=== PATIENT | male | born 1985 | race Hispanic/Latino ===

== ENCOUNTER 2019-04-23 20:49 | Inpatient (IN) | payer SELFPAY ==
[~2019-04-23] VITALS: Ht 165.1 cm; Wt 71.2 kg
[~2019-04-23 20:49] MED LIST: CIPR-278 PO; GLIP5TAB11 PO; HUM10VIA6 SQ; SULF1TAB42 PO; TRAM50TA2 PO
[2019-04-23 22:44] LABS: APPEARANCE,URINE Clear (CLEAR); BILIRUBIN,URINE Negative (NEGATIVE); COLOR,URINE Yellow (YELLOW); GLUCOSE, URINE (UA) >=1000 mg/dL (NEGATIVE); KETONES,URINE 40 mg/dL (NEGATIVE); LEUKOCYTE ESTERASE ,URINE Small (NEGATIVE); NITRATE,URINE Negative (NEGATIVE); OCCULT BLOOD,URINE Small (NEGATIVE); PH,URINE 5.5 (5.0-8.0); PROTEIN,URINE POS 2+ mg/dL (NEGATIVE); UROBILINOGEN,URINE 0.2 mg/dL (0.2-1.0)
[2019-04-23 22:57] LABS: BASOPHILS % (AUTO) 0.5 % (0.0-5.0); EOSINOPHILS % (AUTO) 0.5 % (0.0-8.0); HEMATOCRIT 40.5 % (42-54); LYMPHOCYTES % (AUTO) 15.2 % (21.0-51.0); MEAN CORPUSCULAR HEMOGLOBIN 29.2 pg (27.0-33.0); MEAN CORPUSCULAR HGB CONC 35.4 g/dL (32.0-36.0); MEAN CORPUSCULAR VOLUME 82.4 fL (79-99); NEUTROPHILS % (AUTO) 75.8 % (40.0-77.0); PLATELET COUNT (AUTO) 248 K/uL (130-400); RED BLOOD CELL COUNT(AUTO) 4.91 MIL/uL (4.50-6.20); RED CELL DISTRIBUTION WIDTH 13.3 % (11.0-15.5); WHITE BLOOD COUNT (AUTO) 12.5 K/uL (4.8-10.8)
[2019-04-23 23:07] LABS: BACTERIA,URINE None Seen /HPF (None Seen); SQUAMOUS EPITHELIAL CELL,UR Rare /HPF (0-2); YEAST,URINE BUDDING Moderate /HPF (None Seen)
[2019-04-23] MEDS ORDERED: SODIUM CHLORIDE 0.9% 1000ML 1,000 ML IV ONE (23:11)
[2019-04-23] MEDS ORDERED: INSULIN HUMULIN R 100 UNIT/ML 3ML ONE (23:11)
[2019-04-23 23:12] LABS: ALBUMIN 3.6 g/dL (3.5-5.0); BILIRUBIN,TOTAL 0.7 mg/dL (0.2-1.0); CREATININE 1.1 mg/dL (0.5-1.5); POTASSIUM 4.6 mmol/L (3.5-5.1); TOTAL PROTEIN, SERUM 8.5 g/dL (6.0-8.3)
[2019-04-24] MEDS ORDERED: CLINDAMYCIN 600 MG/D5% WATER 50 ML IV ONE (00:36)
[2019-04-24] MEDS ORDERED: ONDANSETRON HCL 4 MG/2 ML VIAL IV PRN (03:30)
[2019-04-24] MEDS ORDERED: ACETAMINOPHEN 325 MG TAB PO PRN ×2 (03:30)
[2019-04-24 04:30] VITALS: BP 142/94
[2019-04-24] MEDS: SODIUM CHLORIDE 0.9% 1000ML 1,000 ML IV SCH ×2 (05:18→17:03)
[2019-04-24 08:00] VITALS: BP 150/94
[2019-04-24] MEDS: INSULIN HUMULIN R 100 UNIT/ML 3ML SQ SCH ×4 (08:34→21:24)
[2019-04-24] MEDS: FAMOTIDINE 20MG TAB 20 MG TAB PO SCH ×2 (08:34→21:18)
[2019-04-24] MEDS: CLINDAMYCIN 600 MG/D5% WATER 50 ML IV SCH ×2 (08:34→17:00)
--- NOTE | 2019-04-24 11:59 | NUR ---
[facility] RECOMMENDATIONS PATIENT ASSESSED REQUESTED: PATIENT PRESENTS WITH WOUND TO LEFT INDEX FINGER; [facility] RECOMMENDATIONS SUBMITTED. Addendum: 04/24/19 at 1202 by RUDDY DE LA FUENTE LVN LVN W Amended: Links added.
[2019-04-24 12:00] VITALS: BP 149/86
[2019-04-24 16:00] VITALS: BP 129/86
[2019-04-24] MEDS ORDERED: VANCOMYCIN PROTOCOL PER PHARMACY IV SCH (17:45)
--- NOTE | 2019-04-24 17:47 | NUR ---
cm note met with patient and states resides athome with mother, independnet and active at home. no dme. dc lacey is back home. [facility] has spoken to [facility]. provided porsha clinical information. for meds rx, assist and md. pt verbalizes understanding. Addendum: 04/24/19 at 1748 by ANABEL SCHREIBER CM Amended: Links added.
[2019-04-24] MEDS ORDERED: VANCOMYCIN 1.75 GM in SODIUM CHLORIDE 0.9% 250 ML IV ONE (20:45)
[2019-04-24 21:09] VITALS: BP 132/75
[2019-04-24 23:59] VITALS: BP 111/77
[2019-04-25 04:16] VITALS: BP 116/67
[2019-04-25] MEDS: VANCOMYCIN 1GM+NS 250ML 250 ML IV SCH ×3 (05:30→21:00)
[2019-04-25 05:47] LABS: BASOPHILS % (AUTO) 0.9 % (0.0-5.0); EOSINOPHILS % (AUTO) 1.6 % (0.0-8.0); HEMATOCRIT 38.3 % (42-54); LYMPHOCYTES % (AUTO) 28.8 % (21.0-51.0); MEAN CORPUSCULAR HEMOGLOBIN 29.6 pg (27.0-33.0); MEAN CORPUSCULAR HGB CONC 35.5 g/dL (32.0-36.0); MEAN CORPUSCULAR VOLUME 83.4 fL (79-99); NEUTROPHILS % (AUTO) 54.7 % (40.0-77.0); PLATELET COUNT (AUTO) 254 K/uL (130-400); RED BLOOD CELL COUNT(AUTO) 4.59 MIL/uL (4.50-6.20); RED CELL DISTRIBUTION WIDTH 13.7 % (11.0-15.5); WHITE BLOOD COUNT (AUTO) 6.2 K/uL (4.8-10.8)
[2019-04-25 05:51] LABS: CREATININE 0.9 mg/dL (0.5-1.5); POTASSIUM 3.7 mmol/L (3.5-5.1)
[2019-04-25] MEDS: SODIUM CHLORIDE 0.9% 1000ML 1,000 ML IV SCH (06:10)
[2019-04-25 07:00] VITALS: BP 114/68
[2019-04-25] MEDS: INSULIN HUMULIN R 100 UNIT/ML 3ML SQ SCH ×4 (07:08→21:10)
[2019-04-25] MEDS: FAMOTIDINE 20MG TAB 20 MG TAB PO SCH ×2 (08:06→20:53)
[2019-04-25 11:00] VITALS: BP 123/77
[2019-04-25] MEDS ORDERED: FLUCONAZOLE 100 MG TAB PO SCH (12:00)
[2019-04-25 16:00] VITALS: BP 136/92
[2019-04-25] MEDS ORDERED: FLUCONAZOLE 100 MG TAB ONE (17:28)
[2019-04-25 20:20] VITALS: BP 124/79
[2019-04-25 23:00] VITALS: BP 115/72
[2019-04-26 03:00] VITALS: BP 119/76
[2019-04-26] MEDS: INSULIN HUMULIN R 100 UNIT/ML 3ML SQ SCH ×2 (05:16→11:38)
[2019-04-26] MEDS: VANCOMYCIN 1GM+NS 250ML 250 ML IV SCH (05:34)
[2019-04-26] MEDS: SODIUM CHLORIDE 0.9% 1000ML 1,000 ML IV SCH (05:40)
[2019-04-26 06:28] LABS: BASOPHILS % (AUTO) 0.4 % (0.0-5.0); EOSINOPHILS % (AUTO) 1.6 % (0.0-8.0); HEMATOCRIT 35.7 % (42-54); LYMPHOCYTES % (AUTO) 28.5 % (21.0-51.0); MEAN CORPUSCULAR HEMOGLOBIN 29.5 pg (27.0-33.0); MEAN CORPUSCULAR VOLUME 84.2 fL (79-99); MONOCYTES % (AUTO) 12.7 % (3.0-13.0); NEUTROPHILS % (AUTO) 56.8 % (40.0-77.0); PLATELET COUNT (AUTO) 225 K/uL (130-400); RED BLOOD CELL COUNT(AUTO) 4.24 MIL/uL (4.50-6.20); RED CELL DISTRIBUTION WIDTH 13.8 % (11.0-15.5); WHITE BLOOD COUNT (AUTO) 6.1 K/uL (4.8-10.8)
[2019-04-26 08:00] VITALS: BP 128/77
[2019-04-26] MEDS: FAMOTIDINE 20MG TAB 20 MG TAB PO SCH (08:21)
[2019-04-26 08:52] LABS: CREATININE 0.7 mg/dL (0.5-1.5)
[2019-04-26] MEDS ORDERED: FLUCONAZOLE 100 MG TAB PO SCH (09:00)
[2019-04-26] MEDS ORDERED: DOXY100T2 PO (09:28)
[2019-04-26] MEDS ORDERED: FLUC200T8 PO (09:28)
[2019-04-26 10:29] LABS: POTASSIUM 3.7 mmol/L (3.5-5.1)
[2019-04-26 11:50] VITALS: BP 141/96
--- NOTE | 2019-04-26 12:43 | NUR ---
discharge instruction provided to patient at discharge . educated on importance to take his antibiotics and controll his blood sugar and to make sure to call saturday to follow up with dr glover and primary as well. instruction on keeping wound clean and dry and if scabs fall off prematuraly to call dr glover sooner. patient verbilized understanding
== END 2019-04-26 12:15 | disposition home or self-care (01) | DRG 638 ==
LOC: EDH 20:49 → EDHIP 20:50 → OBSVTOIN 20:50 → 3DH 04-24 03:35
PROVIDERS: ADMIT Internal Medicine; ATTEND Internal Medicine
DX: E11.69 Type 2 diabetes mellitus with other specified complication (principal); L03.90 Cellulitis, unspecified; E87.1 Hypo-osmolality and hyponatremia; N39.0 Urinary tract infection, site not specified; M86.142 Other acute osteomyelitis, left hand; L02.512 Cutaneous abscess of left hand; W26.0XXA Contact with knife, initial encounter; E11.65 Type 2 diabetes mellitus with hyperglycemia; L98.499 Non-pressure chronic ulcer of skin of other sites with unspecified severity; S61.201A Unspecified open wound of left index finger without damage to nail, initial encounter; B95.61 Methicillin susceptible Staphylococcus aureus infection as the cause of diseases classified elsewhere; Y93.89 Activity, other specified; Z79.4 Long term (current) use of insulin; Y92.511 Restaurant or cafe as the place of occurrence of the external cause; Y99.8 Other external cause status
CPT/HCPCS: 36415; 73130; 80048; 80053; 80202; 81001; 82948; 85025; 85651; 86140; 87040; 87070; 87076; 87077; 87186; G0378; J1815; J3370; J3490; J7030

== ENCOUNTER 2020-04-02 15:48 | Inpatient (IN) | payer SELFPAY ==
[~2020-04-02] VITALS: Ht 165.1 cm; Wt 77.4 kg
[~2020-04-02 15:48] MED LIST changes: -CIPR-278 PO; +DOXY100T2 PO; +FLUC200T8 PO; -GLIP5TAB11 PO; -SULF1TAB42 PO; -TRAM50TA2 PO
[2020-04-02] MEDS ORDERED: CEFTRIAXONE SODIUM 2 GM VIAL ONE (16:08)
[2020-04-02] MEDS ORDERED: SODIUM CHLORIDE 0.9% 100 ML IV ONE ×2 (16:10→19:22)
[2020-04-02 16:32] LABS: BASOPHILS % (AUTO) 0.1 % (0.0-5.0); EOSINOPHILS % (AUTO) 0.6 % (0.0-8.0); LYMPHOCYTES % (AUTO) 1.4 % (21.0-51.0); MEAN CORPUSCULAR HEMOGLOBIN 28.5 pg (27.0-33.0); MEAN CORPUSCULAR HGB CONC 34.6 g/dL (32.0-36.0); MEAN CORPUSCULAR VOLUME 82.2 fL (79-99); MONOCYTES % (AUTO) 5.2 % (3.0-13.0); NEUTROPHILS % (AUTO) 86.3 % (40.0-77.0); NUCLEATED RED BLOOD CELLS 0.1 % (0.0-0.19); PLATELET COUNT (AUTO) 235 K/uL (130-400); RED BLOOD CELL COUNT(AUTO) 4.99 MIL/uL (4.50-6.20); RED CELL DISTRIBUTION WIDTH 12.6 % (11.0-15.5); WHITE BLOOD COUNT (AUTO) 26.8 K/uL (4.8-10.8)
[2020-04-02 16:44] LABS: INR 0.98 (0.85-1.15); PARTIAL THROMBOPLASTIN TIME 37.7 SEC (26.3-35.5); PROTHROMBIN TIME 10.6 SEC (9.6-11.6)
[2020-04-02 16:59] LABS: ALANINE AMINOTRANSFERASE 22 U/L (12-78); ASPARTATE AMINOTRANSFERASE 17 U/L (10-37); BILIRUBIN,TOTAL 0.9 mg/dL (0.2-1.0); CREATINE KINASE, TOTAL 22 U/L (21-232); CREATININE 1.7 mg/dL (0.5-1.5); GLOMERULAR FILTR. RATE CALC 49 mL/min (>60); MYOGLOBIN 25 ng/mL (10-92); POTASSIUM 3.2 mmol/L (3.5-5.1); SODIUM SERUM 122 mmol/L (136-145); TOTAL PROTEIN, SERUM 7.5 g/dL (6.0-8.3); TROPONIN I < 0.04 ng/mL (0.00-0.06); UREA NITROGEN, BLOOD 28 mg/dL (7-18)
[2020-04-02 17:01] LABS: CARBON DIOXIDE 8 mmol/L (21-32); CHLORIDE 85 mmol/L (101-111)
[2020-04-02 17:02] LABS: GLUCOSE,RANDOM 623 mg/dL (70-105)
[2020-04-02 17:16] LABS: ALBUMIN 2.2 g/dL (3.5-5.0)
[2020-04-02 17:22] LABS: APPEARANCE,URINE Clear (CLEAR); BILIRUBIN,URINE Negative (NEGATIVE); COLOR,URINE Yellow (YELLOW); GLUCOSE, URINE (UA) >=1000 mg/dL (NEGATIVE); KETONES,URINE >=160 mg/dL (NEGATIVE); LEUKOCYTE ESTERASE ,URINE Negative (NEGATIVE); NITRATE,URINE Negative (NEGATIVE); OCCULT BLOOD,URINE Trace (NEGATIVE); PROTEIN,URINE POS 1+ mg/dL (NEGATIVE)
[2020-04-02] MEDS ORDERED: POTASSIUM CHLORIDE 20 MEQ ERTAB PO ONE (17:25)
[2020-04-02 17:41] LABS: ABG OXYGEN SATURATION 67.9 % (95.0-99.0); BASE EXCESS,VENOUS BLOOD GAS -19.3 (-2.0-3.0); HCO3,VENOUS BLOOD GAS 7.5 (21.0-28.0); PCO2,VENOUS BLOOD GAS 22 (35-48); PH,VENOUS BLOOD GAS 7.158 (7.350-7.450)
[2020-04-02 17:56] LABS: AMORPHOUS SEDIMENT,UR Few /LPF (None Seen); BACTERIA,URINE Rare /HPF (None Seen); MUCUS,URINE Moderate LPF (None Seen); SQUAMOUS EPITHELIAL CELL,UR 0-2 /HPF (0-2); WBC,URINE 0-1 /HPF (0-1)
[2020-04-02] MEDS: SODIUM CHLORIDE 0.9% 1000ML 1,000 ML IV SCH ×2 (18:22→23:53)
[2020-04-02] MEDS ORDERED: DEXTROSE 5 %-0.45 % NACL 1,000 ML IV PRN (18:22)
[2020-04-02] MEDS ORDERED: SODIUM CHLORIDE 0.9% 1000ML 1,000 ML IV SCH (18:22)
[2020-04-02] MEDS: INSULIN HUMULIN R 100 UNIT/ML 3ML IV SCH (18:30)
[2020-04-02] MEDS: AZITHROMYCIN 500MG+NS 250ML 250 ML IV SCH (18:30)
[2020-04-02] MEDS ORDERED: ACETAMINOPHEN 325 MG TAB PO PRN ×2 (18:45)
[2020-04-02] MEDS ORDERED: ONDANSETRON HCL 4 MG/2 ML VIAL IV PRN (18:45)
[2020-04-02] MEDS ORDERED: NITROGLYCERIN 0.4 MG SL TAB SL PRN (18:45)
[2020-04-02] MEDS ORDERED: DIPHENHYDRAMINE HCL 25 MG CAPSULE PO PRN (18:45)
[2020-04-02 19:00] LABS: HEMOGLOBIN A1C 14.5 % (4.0-6.0)
[2020-04-02] MEDS: ENOXAPARIN SODIUM 40 MG/0.4 ML SYRINGE SQ SCH (19:00)
[2020-04-02] MEDS ORDERED: INSULIN HUMULIN R 100 UNIT/ML 3ML ONE (19:21)
[2020-04-02 19:35] LABS: CREATININE 1.5 mg/dL (0.5-1.5); MAGNESIUM 1.8 mg/dL (1.80-2.40)
[2020-04-02 19:41] LABS: POTASSIUM 2.9 mmol/L (3.5-5.1)
[2020-04-02 19:42] LABS: CREATINE KINASE, TOTAL 19 U/L (21-232); MYOGLOBIN 28 ng/mL (10-92); TROPONIN I < 0.04 ng/mL (0.00-0.06)
[2020-04-02] MEDS ORDERED: POTASSIUM CHLORIDE 10MEQ/100ML 100 ML IV ONE (19:48)
[2020-04-02] MEDS ORDERED: SODIUM CHLORIDE 0.9% 1000ML 1,000 ML IV ONE (19:49)
[2020-04-02] MEDS ORDERED: AZITHROMYCIN 500MG+NS 250ML 250 ML IV ONE (19:49)
[2020-04-02] MEDS ORDERED: ENOXAPARIN SODIUM 40 MG/0.4 ML SYRINGE SQ ONE (19:49)
[2020-04-02] MEDS ORDERED: ONDANSETRON HCL 4 MG/2 ML VIAL ONE (20:02)
[2020-04-02] MEDS: FAMOTIDINE/PF 20 MG/2 ML VIAL IV SCH (21:00)
--- NOTE | 2020-04-02 21:01 | NUR ---
PATIENT ARRIVE TO 2ND FLOOR ICU WITH NURSE ESCORT.PATIENT APPEARS TO BE WEAK. A&OX4. VSS. 2LNC. IV ACCESS X3. INSULIN & POTASSIUM CURRENTLY INFUSING. BATH GIVEN. GLUCOSE 427. WILL CONTINUE TO MONITOR.
[2020-04-02 21:30] VITALS: BP 137/82
[2020-04-02 21:52] VITALS: BP 140/90
[2020-04-02] MEDS: IPRATROPIUM/ALBUTEROL SULFATE 3 ML SOLUTION IH SCH (22:00)
[2020-04-02 22:22] VITALS: BP 118/79
[2020-04-02 22:52] VITALS: BP 131/87
--- NOTE | 2020-04-02 22:55 | NUR ---
MD SHAHID AT BEDSIDE. VERBAL AUTHORIZATION CHANGE FOR SLIDING SCALE INSULIN DRIP FROM ALGORITHM #1 TO ALGORITHM#2. ALSO SPOKE TO PATIENT REGARDING CODE STATUS. PRIOR TO PATIENT VERBALIZING DESIRE OF FULL CODE, PATIENT STATES HE HAS THOUGHTS OF SUICIDE WITH AN OPPORTUNITY TO SEE HIS GRANDMOTHER. . BED ALARM SET. WILL CONTINUE TO MONITOR.
[2020-04-02 23:22] VITALS: BP 132/82
[2020-04-02 23:52] VITALS: BP 135/85
[2020-04-02] MEDS: POTASSIUM CHLORIDE 10MEQ/100ML 100 ML IV PRN (23:53)
[2020-04-03] VITALS (32 sets, daily range): BP systolic 100–136; BP diastolic 44–88
[2020-04-03] MEDS: IPRATROPIUM/ALBUTEROL SULFATE 3 ML SOLUTION IH SCH ×6 (00:12→20:24)
[2020-04-03 01:21] LABS: ABG BASE EXCESS -10.3 mmol/L (-2.0-3.0); ABG HCO3 14.6 mmol/L (21.0-28.0); ABG OXYGEN SATURATION 92.7 % (95.0-99.0); ABG PCO2 30 mmHg (35-48)
[2020-04-03 02:13] LABS: BASOPHILS % (AUTO) 0.1 % (0.0-5.0); EOSINOPHILS % (AUTO) 0.8 % (0.0-8.0); HEMATOCRIT 36.8 % (42-54); LYMPHOCYTES % (AUTO) 3.7 % (21.0-51.0); MEAN CORPUSCULAR HEMOGLOBIN 28.8 pg (27.0-33.0); MEAN CORPUSCULAR HGB CONC 36.1 g/dL (32.0-36.0); MEAN CORPUSCULAR VOLUME 79.7 fL (79-99); MONOCYTES % (AUTO) 6.4 % (3.0-13.0); NEUTROPHILS % (AUTO) 79.6 % (40.0-77.0); NUCLEATED RED BLOOD CELLS 0.2 % (0.0-0.19); PLATELET COUNT (AUTO) 198 K/uL (130-400); RED BLOOD CELL COUNT(AUTO) 4.62 MIL/uL (4.50-6.20); RED CELL DISTRIBUTION WIDTH 12.3 % (11.0-15.5); WHITE BLOOD COUNT (AUTO) 19.4 K/uL (4.8-10.8)
[2020-04-03 02:32] LABS: ALBUMIN 1.8 g/dL (3.5-5.0); BILIRUBIN,TOTAL 0.4 mg/dL (0.2-1.0); CREATININE 1.3 mg/dL (0.5-1.5); MAGNESIUM 1.7 mg/dL (1.80-2.40); POTASSIUM 3.2 mmol/L (3.5-5.1); TOTAL PROTEIN, SERUM 6.5 g/dL (6.0-8.3)
[2020-04-03] MEDS: POTASSIUM CHLORIDE 10MEQ/100ML 100 ML IV PRN (03:30)
[2020-04-03 04:15] LABS: BASOPHILS % (AUTO) 0.8 % (0.0-5.0); HEMATOCRIT 34.8 % (42-54); LYMPHOCYTES % (AUTO) 3.6 % (21.0-51.0); MEAN CORPUSCULAR HEMOGLOBIN 28.5 pg (27.0-33.0); MEAN CORPUSCULAR HGB CONC 35.9 g/dL (32.0-36.0); MEAN CORPUSCULAR VOLUME 79.3 fL (79-99); MONOCYTES % (AUTO) 6.1 % (3.0-13.0); NEUTROPHILS % (AUTO) 76.2 % (40.0-77.0); PLATELET COUNT (AUTO) 212 K/uL (130-400); RED BLOOD CELL COUNT(AUTO) 4.39 MIL/uL (4.50-6.20); RED CELL DISTRIBUTION WIDTH 11.9 % (11.0-15.5); WHITE BLOOD COUNT (AUTO) 16.3 K/uL (4.8-10.8)
[2020-04-03 04:33] LABS: ALBUMIN 1.8 g/dL (3.5-5.0); BILIRUBIN,TOTAL 0.3 mg/dL (0.2-1.0); CREATININE 1.3 mg/dL (0.5-1.5); MAGNESIUM 1.6 mg/dL (1.80-2.40); TOTAL PROTEIN, SERUM 6.2 g/dL (6.0-8.3)
[2020-04-03] MEDS: SODIUM CHLORIDE 0.9% 1000ML 1,000 ML IV SCH ×2 (04:50→06:43)
[2020-04-03 04:52] LABS: ABG BASE EXCESS -7.9 mmol/L (-2.0-3.0); ABG HCO3 15.7 mmol/L (21.0-28.0); ABG OXYGEN SATURATION 92.8 % (95.0-99.0); ABG PCO2 28 mmHg (35-48)
[2020-04-03] MEDS: MAGNESIUM 2GM PREMIX 50ML 50 ML IV SCH (04:59)
[2020-04-03 05:02] LABS: POTASSIUM 2.5 mmol/L (3.5-5.1)
--- NOTE | 2020-04-03 06:05 | NUR ---
VERBAL ORDER FOR INSERTION OF MARTIN PER MD MASTERS. EDUCATION PROVIDED TO PATIENT. 16F MARTIN INSERTED WHILE PERFORMING STERILE TECHNIQUE. 1600 COLLECTED. URINE ANALYSIS SENT TO LAB.
[2020-04-03] MEDS ORDERED: POTASSIUM CHLORIDE 10% ELIXIR 20 MEQ/15 ML UDCUP ONE (06:42)
[2020-04-03 07:01] LABS: APPEARANCE,URINE Cloudy (CLEAR); BILIRUBIN,URINE Negative (NEGATIVE); COLOR,URINE Yellow (YELLOW); GLUCOSE, URINE (UA) >=1000 mg/dL (NEGATIVE); KETONES,URINE >=80 mg/dL (NEGATIVE); LEUKOCYTE ESTERASE ,URINE Negative (NEGATIVE); NITRATE,URINE Negative (NEGATIVE); OCCULT BLOOD,URINE Trace (NEGATIVE); PH,URINE 5.5 (5.0-8.0); PROTEIN,URINE POS 2+ mg/dL (NEGATIVE)
[2020-04-03 07:25] LABS: SQUAMOUS EPITHELIAL CELL,UR Rare /HPF (0-2)
[2020-04-03 07:26] LABS: AMORPHOUS SEDIMENT,UR Few /LPF (None Seen); BACTERIA,URINE Few /HPF (None Seen); RBC,URINE 0-1 /HPF (0-1); WBC,URINE None Seen /HPF (0-1)
[2020-04-03 07:27] LABS: COARSE GRANULAR CASTS,URINE 0-2 /LPF (None Seen)
[2020-04-03] MEDS ORDERED: LIDOCAINE HCL-MPF 1% 2ML VIAL IV PRN (07:45)
[2020-04-03] MEDS ORDERED: POTASSIUM CHLORIDE 10% ELIXIR 20 MEQ/15 ML UDCUP PO PRN (07:45)
[2020-04-03] MEDS ORDERED: SODIUM CHLORIDE 23.4% 30ML VL 77 MEQ in DEXTROSE 10%-WATER 980.75 ML IV SCH (08:15)
[2020-04-03 08:33] LABS: ABG BASE EXCESS -8.4 mmol/L (-2.0-3.0); ABG HCO3 15.8 mmol/L (21.0-28.0); ABG OXYGEN SATURATION 93.2 % (95.0-99.0); ABG PCO2 30 mmHg (35-48)
[2020-04-03] MEDS: ENOXAPARIN SODIUM 40 MG/0.4 ML SYRINGE SQ SCH (08:33)
[2020-04-03] MEDS: FAMOTIDINE/PF 20 MG/2 ML VIAL IV SCH ×2 (08:33→20:24)
[2020-04-03 08:35] LABS: CREATININE 1.1 mg/dL (0.5-1.5); MAGNESIUM 1.9 mg/dL (1.80-2.40)
[2020-04-03 08:40] LABS: POTASSIUM 2.7 mmol/L (3.5-5.1)
[2020-04-03] MEDS: POTASSIUM CHLORIDE 20MEQ/100ML 100 ML IV PRN ×2 (08:48→11:10)
[2020-04-03] MEDS ORDERED: ENOXAPARIN SODIUM 40 MG/0.4 ML SYRINGE SQ SCH (09:00)
[2020-04-03] MEDS ORDERED: INSULIN REGULAR, HUMAN 3ML 100 UNIT in SODIUM CHLORIDE 0.9% 99 ML IV SCH ×2 (09:45)
[2020-04-03 12:33] LABS: POTASSIUM 3.2 mmol/L (3.5-5.1)
[2020-04-03] MEDS ORDERED: POTASSIUM CHLORIDE 10MEQ/100ML 10 MEQ/100 ML ML IV SCH ×2 (13:15→17:00)
[2020-04-03 13:22] LABS: ABG BASE EXCESS -6.9 mmol/L (-2.0-3.0); ABG HCO3 17.5 mmol/L (21.0-28.0); ABG OXYGEN SATURATION 96.4 % (95.0-99.0); ABG PCO2 32 mmHg (35-48)
[2020-04-03] MEDS: POTASSIUM CHLORIDE 10MEQ/100ML 100 ML IV SCH ×2 (13:30→13:54)
[2020-04-03] MEDS ORDERED: GLUCAGON 1MG KIT 1 MG ML IM PRN (13:45)
[2020-04-03] MEDS ORDERED: DEXTROSE 50%-WATER 50 ML DISP.SYRIN IV PRN (13:45)
[2020-04-03] MEDS ORDERED: INSULIN GLARGINE 100 UNITS/ML 10 ML VIAL SQ ONE (13:45)
[2020-04-03 16:25] LABS: POTASSIUM 3.9 mmol/L (3.5-5.1)
[2020-04-03 16:43] LABS: ABG BASE EXCESS -6.2 mmol/L (-2.0-3.0); ABG HCO3 17.7 mmol/L (21.0-28.0); ABG OXYGEN SATURATION 95.2 % (95.0-99.0); ABG PCO2 31 mmHg (35-48)
[2020-04-03] MEDS: AZITHROMYCIN 500MG+NS 250ML 250 ML IV SCH (17:37)
[2020-04-03] MEDS: INSULIN HUMULIN R 100 UNIT/ML 3ML SQ SCH ×2 (17:40→20:24)
--- NOTE | 2020-04-03 18:18 | NUR ---
DKA protocol followed. K level of 3.2 noted and given K 30 myles ivpb over 4 hours (10 meq bag each) as ordered. Next lab value revealed K level of 3.9. protocol followed and infused 10 meq ivpb over an hour and completed at 1800. Protocol states to draw lab in two hours. lab ordered, will continue to monitor and information will be given to oncoming nurse.
[2020-04-03] MEDS: INSULIN HUMULIN R 100 UNIT/ML 3ML IV SCH (18:30)
[2020-04-03 20:13] LABS: CREATININE 0.9 mg/dL (0.5-1.5); POTASSIUM 3.1 mmol/L (3.5-5.1)
[2020-04-03] MEDS: INSULIN GLARGINE 100 UNITS/ML 10 ML VIAL SQ SCH (20:23)
[2020-04-03 20:25] LABS: ABG HCO3 18.5 mmol/L (21.0-28.0); ABG OXYGEN SATURATION 95.7 % (95.0-99.0); ABG PCO2 31 mmHg (35-48)
--- NOTE | 2020-04-03 22:25 | NUR ---
Dark Red urine noted from adair catheter Hospitalist called. Spoke to Montoya MD. Intervention Orders placed: H&H, PT/INR, Urine Profile.
[2020-04-03 23:47] LABS: HEMATOCRIT 31.4 % (42-54)
[2020-04-04] VITALS: BP 122/71
[2020-04-04 00:12] LABS: APPEARANCE,URINE Clear (CLEAR); BILIRUBIN,URINE Negative (NEGATIVE); COLOR,URINE Yellow (YELLOW); GLUCOSE, URINE (UA) 500 mg/dL (NEGATIVE); KETONES,URINE 15 mg/dL (NEGATIVE); LEUKOCYTE ESTERASE ,URINE Trace (NEGATIVE); NITRATE,URINE Negative (NEGATIVE); OCCULT BLOOD,URINE Large (NEGATIVE); PH,URINE 6.5 (5.0-8.0); PROTEIN,URINE 300 mg/dL (NEGATIVE)
[2020-04-04 00:21] LABS: PROTHROMBIN TIME 10.8 SEC (9.6-11.6); RBC,URINE TNTC /HPF (0-1)
[2020-04-04 00:22] LABS: BACTERIA,URINE None Seen /HPF (None Seen); MUCUS,URINE None Seen LPF (None Seen); SQUAMOUS EPITHELIAL CELL,UR None Seen /HPF (0-2)
[2020-04-04] MEDS: IPRATROPIUM/ALBUTEROL SULFATE 3 ML SOLUTION IH SCH ×6 (02:00→23:14)
--- NOTE | 2020-04-04 02:10 | NUR ---
Received report per ICU nurse Jayden, patient Dewey draining dark red urine noted. Hospitalist notified per ICU nurse, PT/INR, Hemoglobin & Hematocrit, urine profile ordered. Informed charge nurse Tish of lab results, Pt. verbalizes no complaints at this time, will continue to monitor.
--- NOTE | 2020-04-04 02:16 | NUR ---
Informed per ICU nurse Jayden patient verbalizing prior thoughts of suicidal ideation, Pt. denies suicidal thoughts at this time, will continue to monitor.
[2020-04-04 04:00] VITALS: BP 119/69
--- NOTE | 2020-04-04 04:07 | NUR ---
Vital sign error for 04/04 400 These are the correct vitals: BP 125/84, HR 82 O2,98%, R,19 T 98.2
[2020-04-04 05:36] LABS: BASOPHILS % (AUTO) 0.1 % (0.0-5.0); EOSINOPHILS % (AUTO) 0.4 % (0.0-8.0); HEMATOCRIT 32.8 % (42-54); LYMPHOCYTES % (AUTO) 11.7 % (21.0-51.0); MEAN CORPUSCULAR HEMOGLOBIN 28.3 pg (27.0-33.0); MEAN CORPUSCULAR HGB CONC 36.3 g/dL (32.0-36.0); MEAN CORPUSCULAR VOLUME 78.1 fL (79-99); MONOCYTES % (AUTO) 8.7 % (3.0-13.0); NEUTROPHILS % (AUTO) 71.1 % (40.0-77.0); NUCLEATED RED BLOOD CELLS 0.2 % (0.0-0.19); PLATELET COUNT (AUTO) 170 K/uL (130-400); RED CELL DISTRIBUTION WIDTH 12.3 % (11.0-15.5); WHITE BLOOD COUNT (AUTO) 8.1 K/uL (4.8-10.8)
[2020-04-04 05:59] LABS: ALBUMIN 1.6 g/dL (3.5-5.0); BILIRUBIN,TOTAL 0.4 mg/dL (0.2-1.0); CREATININE 0.8 mg/dL (0.5-1.5); MAGNESIUM 1.7 mg/dL (1.80-2.40); TOTAL PROTEIN, SERUM 5.8 g/dL (6.0-8.3)
[2020-04-04] MEDS: POTASSIUM CHLORIDE 20MEQ/100ML 100 ML IV PRN ×3 (06:48→22:07)
[2020-04-04] MEDS: INSULIN HUMULIN R 100 UNIT/ML 3ML SQ SCH ×4 (07:12→22:05)
[2020-04-04 08:00] VITALS: BP 117/76
[2020-04-04] MEDS ORDERED: SODIUM CHLORIDE 0.9% 50 ML IV ONE (08:32)
[2020-04-04] MEDS: CEFTRIAXONE SODIUM 1 GM IV SCH (08:44)
[2020-04-04] MEDS: FAMOTIDINE/PF 20 MG/2 ML VIAL IV SCH ×2 (08:44→22:02)
[2020-04-04] MEDS: ENOXAPARIN SODIUM 40 MG/0.4 ML SYRINGE SQ SCH (08:46)
[2020-04-04 11:23] VITALS: BP 127/81
[2020-04-04 12:45] LABS: CREATININE 0.8 mg/dL (0.5-1.5)
[2020-04-04 13:36] LABS: POTASSIUM 2.9 mmol/L (3.5-5.1)
--- NOTE | 2020-04-04 14:07 | NUR ---
K = 2.9 Dr Carreno made aware
--- NOTE | 2020-04-04 16:17 | NUR ---
DC PLAN VISITED WITH PATIENT. PATIENT LIVES WITH MOM. INDEPENDENT ABLE TO PERFORM ADL'S. PATIENT HAS NO SERVICES OR DME'S. FEELS SAFE TO RETURN HOME. Addendum: 04/04/20 at 1618 by ZAINAB REDD RN CM Amended: Links added.
[2020-04-04 17:00] VITALS: BP 140/96
[2020-04-04] MEDS: AZITHROMYCIN 500MG+NS 250ML 250 ML IV SCH (18:24)
[2020-04-04 20:07] LABS: CREATININE 0.7 mg/dL (0.5-1.5)
[2020-04-04 20:13] LABS: POTASSIUM 2.8 mmol/L (3.5-5.1)
[2020-04-04 21:14] VITALS: BP 104/67
[2020-04-04] MEDS: INSULIN GLARGINE 100 UNITS/ML 10 ML VIAL SQ SCH (22:05)
[2020-04-04] MEDS: MAGNESIUM 2GM PREMIX 50ML 50 ML IV SCH (22:06)
[2020-04-05 00:10] VITALS: BP 114/72
[2020-04-05] MEDS: IPRATROPIUM/ALBUTEROL SULFATE 3 ML SOLUTION IH SCH ×3 (02:04→09:16)
[2020-04-05] MEDS: POTASSIUM CHLORIDE 20 MEQ ERTAB PO PRN ×5 (03:41→06:22)
[2020-04-05 04:02] LABS: BASOPHILS % (AUTO) 0.3 % (0.0-5.0); EOSINOPHILS % (AUTO) 0.4 % (0.0-8.0); LYMPHOCYTES % (AUTO) 16.9 % (21.0-51.0); MEAN CORPUSCULAR HEMOGLOBIN 28.6 pg (27.0-33.0); MEAN CORPUSCULAR HGB CONC 36.5 g/dL (32.0-36.0); MEAN CORPUSCULAR VOLUME 78.5 fL (79-99); MONOCYTES % (AUTO) 8.7 % (3.0-13.0); NEUTROPHILS % (AUTO) 64.4 % (40.0-77.0); PLATELET COUNT (AUTO) 171 K/uL (130-400); RED BLOOD CELL COUNT(AUTO) 3.95 MIL/uL (4.50-6.20); RED CELL DISTRIBUTION WIDTH 12.4 % (11.0-15.5); WHITE BLOOD COUNT (AUTO) 7.2 K/uL (4.8-10.8)
[2020-04-05 04:19] LABS: ALBUMIN 1.6 g/dL (3.5-5.0); BILIRUBIN,TOTAL 0.5 mg/dL (0.2-1.0); CREATININE 0.8 mg/dL (0.5-1.5); MAGNESIUM 1.9 mg/dL (1.80-2.40); PHOSPHORUS 1.4 mg/dL (2.5-4.9); TOTAL PROTEIN, SERUM 6.2 g/dL (6.0-8.3)
[2020-04-05 04:40] LABS: POTASSIUM 2.9 mmol/L (3.5-5.1)
[2020-04-05] MEDS: POTASSIUM CHLORIDE 20MEQ/100ML 100 ML IV PRN (06:06)
[2020-04-05] MEDS: INSULIN HUMULIN R 100 UNIT/ML 3ML SQ SCH ×5 (06:06→20:25)
[2020-04-05 06:09] VITALS: BP 116/80
[2020-04-05] MEDS ORDERED: INSULIN HUMULIN R 100 UNIT/ML 3ML SQ SCH ×2 (07:30→11:30)
[2020-04-05 08:21] VITALS: BP 122/83
[2020-04-05] MEDS: FAMOTIDINE/PF 20 MG/2 ML VIAL IV SCH ×2 (09:00→20:25)
[2020-04-05] MEDS: CEFTRIAXONE SODIUM 1 GM IV SCH (09:00)
[2020-04-05] MEDS: ENOXAPARIN SODIUM 40 MG/0.4 ML SYRINGE SQ SCH (09:00)
[2020-04-05] MEDS ORDERED: POTASSIUM CHLORIDE 20 MEQ ERTAB PO SCH ×2 (09:30→16:45)
[2020-04-05] MEDS ORDERED: IPRATROPIUM/ALBUTEROL SULFATE 3 ML SOLUTION IH PRN (09:30)
[2020-04-05 11:44] VITALS: BP 126/86
[2020-04-05 16:25] LABS: CREATININE 0.7 mg/dL (0.5-1.5); POTASSIUM 3.1 mmol/L (3.5-5.1)
[2020-04-05 17:20] VITALS: BP 144/85
[2020-04-05] MEDS: AZITHROMYCIN 500MG+NS 250ML 250 ML IV SCH (18:54)
[2020-04-05 20:39] VITALS: BP 131/91
[2020-04-05] MEDS ORDERED: INSULIN GLARGINE 100 UNITS/ML 10 ML VIAL SQ SCH ×2 (21:00)
[2020-04-06] VITALS (7 sets, daily range): BP systolic 111–134; BP diastolic 75–95
[2020-04-06] MEDS: INSULIN HUMULIN R 100 UNIT/ML 3ML SQ SCH ×7 (06:22→20:17)
[2020-04-06 06:50] LABS: CREATININE 0.7 mg/dL (0.5-1.5); MAGNESIUM 1.8 mg/dL (1.80-2.40); POTASSIUM 3.7 mmol/L (3.5-5.1)
[2020-04-06] MEDS: ENOXAPARIN SODIUM 40 MG/0.4 ML SYRINGE SQ SCH (09:42)
[2020-04-06] MEDS: CEFTRIAXONE SODIUM 1 GM IV SCH (09:42)
[2020-04-06] MEDS: FAMOTIDINE/PF 20 MG/2 ML VIAL IV SCH ×2 (09:42→20:17)
[2020-04-06] MEDS: AZITHROMYCIN 500MG+NS 250ML 250 ML IV SCH (18:13)
[2020-04-06] MEDS ORDERED: INSULIN GLARGINE 100 UNITS/ML 10 ML VIAL SQ SCH (21:00)
[2020-04-07 04:53] VITALS: BP 133/88
[2020-04-07 05:02] LABS: BASOPHILS % (AUTO) 0.8 % (0.0-5.0); EOSINOPHILS % (AUTO) 1.1 % (0.0-8.0); LYMPHOCYTES % (AUTO) 23.3 % (21.0-51.0); MEAN CORPUSCULAR HEMOGLOBIN 28.2 pg (27.0-33.0); MEAN CORPUSCULAR VOLUME 80.6 fL (79-99); MONOCYTES % (AUTO) 8.3 % (3.0-13.0); NEUTROPHILS % (AUTO) 59.3 % (40.0-77.0); PLATELET COUNT (AUTO) 226 K/uL (130-400); RED BLOOD CELL COUNT(AUTO) 3.97 MIL/uL (4.50-6.20); RED CELL DISTRIBUTION WIDTH 12.7 % (11.0-15.5); WHITE BLOOD COUNT (AUTO) 8.8 K/uL (4.8-10.8)
[2020-04-07 05:26] LABS: CREATININE 0.8 mg/dL (0.5-1.5); POTASSIUM 4.2 mmol/L (3.5-5.1)
[2020-04-07] MEDS: INSULIN HUMULIN R 100 UNIT/ML 3ML SQ SCH ×4 (05:32→13:07)
[2020-04-07] MEDS: CEFTRIAXONE SODIUM 1 GM IV SCH (08:45)
[2020-04-07] MEDS: FAMOTIDINE/PF 20 MG/2 ML VIAL IV SCH (08:46)
[2020-04-07] MEDS: ENOXAPARIN SODIUM 40 MG/0.4 ML SYRINGE SQ SCH (08:46)
[2020-04-07 08:53] VITALS: BP 116/83
[2020-04-07] MEDS ORDERED: LEVOFLOXACIN 750 MG TABLET PO SCH (10:30)
[2020-04-07 12:27] VITALS: BP 137/96
--- NOTE | 2020-04-07 13:33 | NUR ---
CM NOTE/GOOD RX MEET WITH PATIENT IN ROOM. PENDING DR. MUSA TO PRESCRIBE INSULIN FOR HOME USE. GOOD RX CARDS GIVEN TO PATIENT AND EXPLAINED HOW TO USE, VERBALIZED UNDERSTANDING. ALSO REFERRED PATIENTS TO SELF PAY PACKET/MEDICAL PACKET FOR RESOURCES AVAILABLE TO HIM. PATIENT VERBALIZED UNDERSTANDING.
--- NOTE | 2020-04-07 16:30 | NUR ---
DC PT AWAKE, ALERT, AND ORIENTED. DC HOME INSTRUCTIONS GIVEN TO PT, WRITTEN PRESCRIPTION FOR AMOXICILLIN, INSULIN 70/30, GLUCOMETER, NEEDLES AND SYRINGES AND SUPPLIES GIVEN TO PT. PT EDUCATED ON IMPORTANCE OF COMPLIANCE WITH MEDICATIONS, DIABETIC DIET, AND MD FOLLOW UP OUTPATIENT WITH PCP AND DR MUSA- ENDOCRINOLOGY. PT MADE AWARE TO RETURN TO ER IF NEEDED AND ALSO TO CALL MD FOR QUESTIONS OR CONCERNS. PT ACKNOWLEDGED ALL INFORMATION. AWAITING FOR TRANSPORTATION.
== END 2020-04-07 17:35 | disposition home or self-care (01) | DRG 871 ==
LOC: EDH 15:48 → EDHIP 15:49 → 2CH 20:48 → 2BH 04-03 18:44 → 2DH 04-03 21:00 → 4AH 04-04 19:37
PROVIDERS: ADMIT Family Medicine; ATTEND Family Medicine
DX: A40.3 Sepsis due to Streptococcus pneumoniae (principal); E10.10 Type 1 diabetes mellitus with ketoacidosis without coma; J18.9 Pneumonia, unspecified organism; J96.01 Acute respiratory failure with hypoxia; R65.20 Severe sepsis without septic shock; E87.1 Hypo-osmolality and hyponatremia; N17.9 Acute kidney failure, unspecified; R45.851 Suicidal ideations; J45.909 Unspecified asthma, uncomplicated; E87.6 Hypokalemia; E66.9 Obesity, unspecified; Z68.28 Body mass index [BMI] 28.0-28.9, adult; Z20.828 Contact with and (suspected) exposure to other viral communicable diseases; Z79.4 Long term (current) use of insulin; Z83.3 Family history of diabetes mellitus
CPT/HCPCS: 36415; 36600; 71045; 78582; 80048; 80053; 81001; 82010; 82550; 82728; 82803; 82948; 83036; 83605; 83735; 83874; 84100; 84132; 84145; 84484; 85014; 85018; 85025; 85378; 85610; 85730; 86701; 86900; 86901; 87040; 87077; 87088; 87186; 87390; 87426; 87641; 87804; 93005; 93306; 93356; 94640; 94664; A4344; A9540; A9558; G0378; J0456; J0696; J1650; J1815; J2405; J3475; J3480; J3490; J7030; J7042; J7131; U0003

== ENCOUNTER 2021-04-05 09:31 | Inpatient (IN) | payer OTHER, SELFPAY ==
[~2021-04-05] VITALS: Ht 165.1 cm; Wt 77.2 kg
[2021-04-05] VITALS (7 sets, daily range): BP systolic 114–135; BP diastolic 69–92
[2021-04-05] MEDS ORDERED: 0.9%NACL 50ML 50 ML IV ONE (10:56)
[2021-04-05 10:58] LABS: BASOPHILS % (AUTO) 0.3 % (0.0-5.0); EOSINOPHILS % (AUTO) 1.3 % (0.0-8.0); LYMPHOCYTES % (AUTO) 5.3 % (21.0-51.0); MEAN CORPUSCULAR HEMOGLOBIN 27.8 pg (27.0-33.0); MEAN CORPUSCULAR HGB CONC 36.1 g/dL (32.0-36.0); MEAN CORPUSCULAR VOLUME 77.1 fL (79-99); MONOCYTES % (AUTO) 6.1 % (3.0-13.0); NEUTROPHILS % (AUTO) 86.1 % (40.0-77.0); PLATELET COUNT (AUTO) 154 K/uL (130-400); RED BLOOD CELL COUNT(AUTO) 5.71 MIL/uL (4.50-6.20); RED CELL DISTRIBUTION WIDTH 12.4 % (11.0-15.5); WHITE BLOOD COUNT (AUTO) 13.5 K/uL (4.8-10.8)
[2021-04-05] MEDS ORDERED: DEXAMETHASONE SOD PHOSPHATE 10MG/ML 1ML VIAL IVP SCH (11:00)
[2021-04-05] MEDS ORDERED: 0.9% NACL 250ML IVPB ONE (11:00)
[2021-04-05] MEDS ORDERED: AZITHROMYCIN 500MG VIAL IVPB ONE (11:00)
[2021-04-05] MEDS ORDERED: CEFTRIAXONE 1G VIAL IVP ONE (11:00)
[2021-04-05 11:10] LABS: ALBUMIN 2.8 g/dL (3.5-5.0); BILIRUBIN,TOTAL 0.8 mg/dL (0.2-1.0); CREATININE 1.1 mg/dL (0.5-1.5); POTASSIUM 3.1 mmol/L (3.5-5.1); TOTAL PROTEIN, SERUM 7.9 g/dL (6.0-8.3)
[2021-04-05] MEDS ORDERED: AZITHROMYCIN 500MG+NS 250ML 250 ML IV ONE (12:04)
[2021-04-05 12:08] LABS: ABG HCO3 13.2 mmol/L (21.0-28.0); ABG OXYGEN SATURATION 83.5 % (95.0-99.0); ABG PCO2 24 mmHg (35-48)
[2021-04-05] MEDS ORDERED: PHARMACY COMMUNICATION MISC SCH ×2 (12:30→17:30)
[2021-04-05] MEDS ORDERED: 0.9%NACL 1000ML 1,000 ML IV ONE (12:30)
[2021-04-05] MEDS ORDERED: INSULIN HUMULIN R 100 UNIT/ML 3ML IV ONE (12:30)
[2021-04-05] MEDS ORDERED: INSULIN GLARGINE 100 UNITS/ML 10 ML VIAL SQ ONE (12:45)
[2021-04-05 13:01] LABS: HEMOGLOBIN A1C 12.1 % (4.0-6.0)
[2021-04-05 13:16] LABS: CRP QUANTITATIVE 321.1 mg/L (0.00-9.0)
[2021-04-05 13:21] LABS: APPEARANCE,URINE Clear (CLEAR); BILIRUBIN,URINE Negative (NEGATIVE); COLOR,URINE Yellow (YELLOW); GLUCOSE, URINE (UA) >=1000 mg/dL (NEGATIVE); KETONES,URINE >=160 mg/dL (NEGATIVE); LEUKOCYTE ESTERASE ,URINE Negative (NEGATIVE); NITRATE,URINE Negative (NEGATIVE); OCCULT BLOOD,URINE Trace (NEGATIVE); PH,URINE 5.5 (5.0-8.0); PROTEIN,URINE 300 mg/dL (NEGATIVE); UROBILINOGEN,URINE 0.2 mg/dL (0.2-1.0)
[2021-04-05 13:24] LABS: BACTERIA,URINE Rare /HPF (None Seen); RBC,URINE 0-1 /HPF (0-1); SQUAMOUS EPITHELIAL CELL,UR Rare /HPF (0-2)
[2021-04-05 13:29] LABS: AMPHET/METH SCREEN,URINE NEGATIVE (NEGATIVE); BARBITURATE SCREEN, URINE NEGATIVE (NEGATIVE); BENZODIAZEPINES SCREEN,URINE NEGATIVE (NEGATIVE); CANNABINOID SCREEN,URINE NEGATIVE (NEGATIVE); COCAINE SCREEN,URINE NEGATIVE (NEGATIVE); OPIATE SCREEN,URINE NEGATIVE (NEGATIVE); PHENCYCLIDINE SCREEN,URINE NEGATIVE (NEGATIVE)
[2021-04-05] MEDS ORDERED: COMPOUND IV REFRIGERATED 1 EACH IVSOLN MISC PRN (14:00)
[2021-04-05] MEDS ORDERED: REMDESIVIR (EUA) 520 200 MG in 0.9% NACL 250ML 250 ML IV ONE (14:00)
[2021-04-05] MEDS ORDERED: INSULIN HUMULIN R 100 UNIT/ML 3ML ONE (17:08)
[2021-04-05] MEDS: INSULIN HUMULIN R 100 UNIT/ML 3ML SQ SCH ×2 (17:19→20:53)
[2021-04-05] MEDS: ENOXAPARIN SODIUM 40 MG/0.4 ML SYRINGE SQ SCH (20:51)
[2021-04-05] MEDS: INSULIN GLARGINE 100 UNITS/ML 10 ML VIAL SQ SCH (20:52)
[2021-04-05] MEDS: FAMOTIDINE 20MG TAB PO SCH (20:54)
[2021-04-05] MEDS ORDERED: INSU100I35 SQ (21:59)
[2021-04-06] MEDS ORDERED: POTASSIUM CHLORIDE 10% ELIXIR 20 MEQ/15 ML UDCUP PO PRN (03:00)
[2021-04-06] MEDS ORDERED: LIDOCAINE HCL-MPF 1% 2ML VIAL IV PRN (03:00)
[2021-04-06] MEDS ORDERED: POTASSIUM CHLORIDE 20MEQ/100ML 100 ML IV PRN (03:00)
[2021-04-06] MEDS: KCL 20 MEQ ERTAB PO PRN ×4 (03:28→22:53)
[2021-04-06 03:48] VITALS: BP 113/80
[2021-04-06 04:59] LABS: BASOPHILS % (AUTO) 0.5 % (0.0-5.0); HEMATOCRIT 44.8 % (42-54); LYMPHOCYTES % (AUTO) 4.7 % (21.0-51.0); MEAN CORPUSCULAR HEMOGLOBIN 27.9 pg (27.0-33.0); MEAN CORPUSCULAR HGB CONC 35.5 g/dL (32.0-36.0); MEAN CORPUSCULAR VOLUME 78.7 fL (79-99); MONOCYTES % (AUTO) 5.4 % (3.0-13.0); NEUTROPHILS % (AUTO) 86.6 % (40.0-77.0); PLATELET COUNT (AUTO) 184 K/uL (130-400); RED BLOOD CELL COUNT(AUTO) 5.69 MIL/uL (4.50-6.20); RED CELL DISTRIBUTION WIDTH 12.4 % (11.0-15.5); WHITE BLOOD COUNT (AUTO) 15.2 K/uL (4.8-10.8)
[2021-04-06 05:22] LABS: ALBUMIN 2.3 g/dL (3.5-5.0); BILIRUBIN,TOTAL 0.5 mg/dL (0.2-1.0); POTASSIUM 3.1 mmol/L (3.5-5.1); TOTAL PROTEIN, SERUM 7.3 g/dL (6.0-8.3)
[2021-04-06 05:36] LABS: CRP QUANTITATIVE 354.6 mg/L (0.00-9.0)
[2021-04-06] MEDS: REMDESIVIR LABS MISC SCH (05:42)
[2021-04-06] MEDS: INSULIN GLARGINE 100 UNITS/ML 10 ML VIAL SQ SCH ×2 (06:25→21:10)
[2021-04-06] MEDS: INSULIN HUMULIN R 100 UNIT/ML 3ML SQ SCH ×7 (06:26→21:09)
[2021-04-06 07:15] VITALS: BP 101/69
[2021-04-06] MEDS ORDERED: AZITHROMYCIN 250 MG TABLET PO SCH (09:00)
[2021-04-06] MEDS ORDERED: DEXAMETHASONE SOD PHOSPHATE 4 MG/ML 1ML VIAL IVP SCH (09:00)
[2021-04-06] MEDS: CEFTRIAXONE 1G VIAL IVP SCH (10:00)
[2021-04-06] MEDS: FAMOTIDINE 20MG TAB PO SCH ×2 (10:01→20:31)
[2021-04-06] MEDS: ENOXAPARIN SODIUM 40 MG/0.4 ML SYRINGE SQ SCH ×2 (10:06→20:33)
[2021-04-06 11:01] VITALS: BP 107/76
[2021-04-06] MEDS: BARICITINIB (EUA) 2 MG TABLET PO SCH ×2 (13:31→18:00)
[2021-04-06] MEDS: METOPROLOL TARTRATE 25 MG TAB PO SCH ×2 (13:31→20:31)
[2021-04-06] MEDS ORDERED: MAGNESIUM 2GM PREMIX 50ML 50 ML IV PRN (14:00)
[2021-04-06 15:20] VITALS: BP 115/75
[2021-04-06] MEDS: REMDESIVIR (EUA) 520 100 MG in 0.9% NACL 250ML 250 ML IV SCH (16:13)
[2021-04-06 16:58] LABS: POTASSIUM 2.7 mmol/L (3.5-5.1)
[2021-04-06 20:16] VITALS: BP 104/77
[2021-04-06] MEDS ORDERED: 0.9%NACL 1000ML 500 ML IV ONE (20:30)
[2021-04-06] MEDS: DEXAMETHASONE SOD PHOSPHATE 4 MG/ML 1ML VIAL IVP SCH (20:30)
[2021-04-06 23:31] VITALS: BP 109/76
[2021-04-07] MEDS: KCL 20 MEQ ERTAB PO PRN ×2 (02:58→05:22)
[2021-04-07 03:08] VITALS: BP 106/73
[2021-04-07 04:00] LABS: AMPHET/METH SCREEN,URINE NEGATIVE (NEGATIVE); BARBITURATE SCREEN, URINE NEGATIVE (NEGATIVE); BENZODIAZEPINES SCREEN,URINE NEGATIVE (NEGATIVE); CANNABINOID SCREEN,URINE NEGATIVE (NEGATIVE); COCAINE SCREEN,URINE NEGATIVE (NEGATIVE); OPIATE SCREEN,URINE NEGATIVE (NEGATIVE); PHENCYCLIDINE SCREEN,URINE NEGATIVE (NEGATIVE)
[2021-04-07 05:02] LABS: BASOPHILS % (AUTO) 0.3 % (0.0-5.0); EOSINOPHILS % (AUTO) 0.5 % (0.0-8.0); LYMPHOCYTES % (AUTO) 5.1 % (21.0-51.0); MEAN CORPUSCULAR HGB CONC 36.3 g/dL (32.0-36.0); MEAN CORPUSCULAR VOLUME 77.2 fL (79-99); MONOCYTES % (AUTO) 3.8 % (3.0-13.0); NEUTROPHILS % (AUTO) 89.6 % (40.0-77.0); PLATELET COUNT (AUTO) 266 K/uL (130-400); RED BLOOD CELL COUNT(AUTO) 5.57 MIL/uL (4.50-6.20); RED CELL DISTRIBUTION WIDTH 12.6 % (11.0-15.5); WHITE BLOOD COUNT (AUTO) 14.9 K/uL (4.8-10.8)
[2021-04-07 05:30] LABS: ALBUMIN 2.3 g/dL (3.5-5.0); BILIRUBIN,TOTAL 0.5 mg/dL (0.2-1.0); CREATININE 0.9 mg/dL (0.5-1.5); TOTAL PROTEIN, SERUM 7.2 g/dL (6.0-8.3)
[2021-04-07 05:40] LABS: POTASSIUM 2.9 mmol/L (3.5-5.1)
[2021-04-07] MEDS: REMDESIVIR LABS MISC SCH (05:54)
[2021-04-07] MEDS: INSULIN HUMULIN R 100 UNIT/ML 3ML SQ SCH ×7 (06:46→21:15)
[2021-04-07] MEDS: INSULIN GLARGINE 100 UNITS/ML 10 ML VIAL SQ SCH ×2 (06:48→21:14)
[2021-04-07 07:15] VITALS: BP 114/79
[2021-04-07] MEDS ORDERED: INSULIN GLARGINE 100 UNITS/ML 10 ML VIAL SQ SCH (08:30)
[2021-04-07] MEDS: BARICITINIB (EUA) 2 MG TABLET PO SCH (08:57)
[2021-04-07] MEDS: KCL 20 MEQ ERTAB PO SCH ×2 (08:57→21:10)
[2021-04-07] MEDS: ENOXAPARIN SODIUM 40 MG/0.4 ML SYRINGE SQ SCH ×2 (08:59→21:11)
[2021-04-07] MEDS: METOPROLOL TARTRATE 25 MG TAB PO SCH ×2 (09:00→21:10)
[2021-04-07] MEDS: FAMOTIDINE 20MG TAB PO SCH ×2 (09:00→21:09)
[2021-04-07] MEDS: DEXAMETHASONE SOD PHOSPHATE 4 MG/ML 1ML VIAL IVP SCH ×2 (09:11→21:09)
[2021-04-07] MEDS: CEFTRIAXONE 1G VIAL IVP SCH (09:11)
[2021-04-07] MEDS: 1/2NS+20MEQ KCL/1000ML 1,000 ML IV SCH ×2 (09:11→16:49)
[2021-04-07 11:00] VITALS: BP 117/85
[2021-04-07] MEDS: REMDESIVIR (EUA) 520 100 MG in 0.9% NACL 250ML 250 ML IV SCH (13:31)
[2021-04-07 15:10] VITALS: BP 125/87
[2021-04-07] MEDS: CLOTRIMAZOLE 10 MG TROCHE MM SCH ×2 (18:00→23:51)
[2021-04-07 20:00] VITALS: BP 129/90
[2021-04-07 23:58] VITALS: BP 133/90
[2021-04-08 04:00] LABS: ABG BASE EXCESS -4.6 mmol/L (-2.0-3.0); ABG HCO3 19.2 mmol/L (21.0-28.0); ABG OXYGEN SATURATION 92.9 % (95.0-99.0); ABG PCO2 32 mmHg (35-48)
[2021-04-08] MEDS: 1/2NS+20MEQ KCL/1000ML 1,000 ML IV SCH ×3 (04:00→21:00)
[2021-04-08 04:25] VITALS: BP 132/98
[2021-04-08 05:36] LABS: BASOPHILS % (AUTO) 0.2 % (0.0-5.0); HEMATOCRIT 40.9 % (42-54); LYMPHOCYTES % (AUTO) 8.3 % (21.0-51.0); MEAN CORPUSCULAR HEMOGLOBIN 27.6 pg (27.0-33.0); MEAN CORPUSCULAR HGB CONC 34.7 g/dL (32.0-36.0); MEAN CORPUSCULAR VOLUME 79.4 fL (79-99); NEUTROPHILS % (AUTO) 86.9 % (40.0-77.0); PLATELET COUNT (AUTO) 254 K/uL (130-400); RED BLOOD CELL COUNT(AUTO) 5.15 MIL/uL (4.50-6.20); WHITE BLOOD COUNT (AUTO) 12.5 K/uL (4.8-10.8)
[2021-04-08] MEDS: INSULIN HUMULIN R 100 UNIT/ML 3ML SQ SCH ×7 (05:38→21:21)
[2021-04-08] MEDS: INSULIN GLARGINE 100 UNITS/ML 10 ML VIAL SQ SCH ×2 (05:45→21:21)
[2021-04-08] MEDS: CLOTRIMAZOLE 10 MG TROCHE MM SCH ×3 (05:45→17:05)
[2021-04-08 05:50] LABS: CREATININE 0.8 mg/dL (0.5-1.5); CRP QUANTITATIVE 65.5 mg/L (0.00-9.0); MAGNESIUM 1.7 mg/dL (1.80-2.40); POTASSIUM 3.5 mmol/L (3.5-5.1)
[2021-04-08] MEDS: KCL 20 MEQ ERTAB PO PRN (05:56)
[2021-04-08] MEDS: REMDESIVIR LABS MISC SCH (06:00)
[2021-04-08 08:00] VITALS: BP 117/71
[2021-04-08] MEDS: ENOXAPARIN SODIUM 40 MG/0.4 ML SYRINGE SQ SCH ×2 (10:30→20:59)
[2021-04-08] MEDS: CEFTRIAXONE 1G VIAL IVP SCH (10:30)
[2021-04-08] MEDS: DEXAMETHASONE SOD PHOSPHATE 4 MG/ML 1ML VIAL IVP SCH ×2 (10:30→20:58)
[2021-04-08] MEDS: KCL 20 MEQ ERTAB PO SCH ×2 (10:30→20:58)
[2021-04-08] MEDS: FAMOTIDINE 20MG TAB PO SCH ×2 (10:30→20:58)
[2021-04-08] MEDS: BARICITINIB (EUA) 2 MG TABLET PO SCH (10:31)
[2021-04-08] MEDS: METOPROLOL TARTRATE 25 MG TAB PO SCH ×2 (10:31→20:58)
[2021-04-08 12:00] VITALS: BP 117/87
[2021-04-08] MEDS ORDERED: [UNRECOGNIZED DRUG - REMARK] MISC SCH (13:00)
[2021-04-08 13:15] LABS: ALBUMIN 2.3 g/dL (3.5-5.0); BILIRUBIN,DIRECT 0.1 mg/dL (0.0-0.3); BILIRUBIN,TOTAL 0.3 mg/dL (0.2-1.0); TOTAL PROTEIN, SERUM 6.5 g/dL (6.0-8.3)
[2021-04-08] MEDS ORDERED: KCL 20 MEQ ERTAB PO ONE (14:30)
[2021-04-08] MEDS: REMDESIVIR (EUA) 520 100 MG in 0.9% NACL 250ML 250 ML IV SCH (14:49)
[2021-04-08 16:00] VITALS: BP 128/96
[2021-04-08 20:39] VITALS: BP 139/99
[2021-04-09 00:11] VITALS: BP 149/108
[2021-04-09] MEDS: CLOTRIMAZOLE 10 MG TROCHE MM SCH ×4 (00:50→17:28)
[2021-04-09 04:02] VITALS: BP 137/97
[2021-04-09] MEDS: REMDESIVIR LABS MISC SCH (06:00)
[2021-04-09 06:05] LABS: CREATININE 0.7 mg/dL (0.5-1.5); CRP QUANTITATIVE 29.1 mg/L (0.00-9.0); POTASSIUM 3.9 mmol/L (3.5-5.1)
[2021-04-09] MEDS: INSULIN HUMULIN R 100 UNIT/ML 3ML SQ SCH ×6 (06:29→17:29)
[2021-04-09] MEDS: INSULIN GLARGINE 100 UNITS/ML 10 ML VIAL SQ SCH (06:31)
[2021-04-09 06:44] LABS: BASOPHILS % (AUTO) 0.1 % (0.0-5.0); HEMATOCRIT 37.9 % (42-54); LYMPHOCYTES % (AUTO) 10.3 % (21.0-51.0); MEAN CORPUSCULAR HEMOGLOBIN 27.6 pg (27.0-33.0); MEAN CORPUSCULAR HGB CONC 35.1 g/dL (32.0-36.0); MEAN CORPUSCULAR VOLUME 78.6 fL (79-99); MONOCYTES % (AUTO) 7.9 % (3.0-13.0); NEUTROPHILS % (AUTO) 80.8 % (40.0-77.0); PLATELET COUNT (AUTO) 245 K/uL (130-400); RED BLOOD CELL COUNT(AUTO) 4.82 MIL/uL (4.50-6.20); RED CELL DISTRIBUTION WIDTH 13.1 % (11.0-15.5); WHITE BLOOD COUNT (AUTO) 8.8 K/uL (4.8-10.8)
[2021-04-09 07:02] LABS: CRP QUANTITATIVE 30.4 mg/L (0.00-9.0); MAGNESIUM 1.7 mg/dL (1.80-2.40)
[2021-04-09 08:00] VITALS: BP 143/95
[2021-04-09] MEDS: FAMOTIDINE 20MG TAB PO SCH (09:09)
[2021-04-09] MEDS: METOPROLOL TARTRATE 25 MG TAB PO SCH (09:09)
[2021-04-09] MEDS: CEFTRIAXONE 1G VIAL IVP SCH (09:09)
[2021-04-09] MEDS: BARICITINIB (EUA) 2 MG TABLET PO SCH (09:09)
[2021-04-09] MEDS: DEXAMETHASONE SOD PHOSPHATE 4 MG/ML 1ML VIAL IVP SCH (09:10)
[2021-04-09] MEDS: KCL 20 MEQ ERTAB PO SCH (09:10)
[2021-04-09] MEDS: 1/2NS+20MEQ KCL/1000ML 1,000 ML IV SCH (09:11)
[2021-04-09] MEDS: ENOXAPARIN SODIUM 40 MG/0.4 ML SYRINGE SQ SCH (09:11)
[2021-04-09] MEDS ORDERED: PANT40TA55 PO (12:59)
[2021-04-09] MEDS ORDERED: DEXA6TAB PO (12:59)
[2021-04-09] MEDS ORDERED: APIX2.5T PO (12:59)
[2021-04-09] MEDS ORDERED: POTA-79 PO (12:59)
[2021-04-09] MEDS: REMDESIVIR (EUA) 520 100 MG in 0.9% NACL 250ML 250 ML IV SCH (14:32)
[2021-04-09] MEDS ORDERED: METO25 PO (14:55)
[2021-04-09] MEDS ORDERED: MAGN400T53 PO (14:55)
[2021-04-09 16:00] VITALS: BP 154/88
[2021-04-09] MEDS ORDERED: INSULIN GLARGINE 100 UNITS/ML 10 ML VIAL SQ SCH (21:00)
[2021-04-10] MEDS ORDERED: INSULIN GLARGINE 100 UNITS/ML 10 ML VIAL SQ SCH (08:00)
== END 2021-04-09 18:30 | disposition home or self-care (01) | DRG 177 ==
LOC: EDH 09:31 → EDHIP 09:32 → 4AH 18:00
PROVIDERS: ADMIT Internal Medicine; ATTEND Internal Medicine
PROC: XW033E5 Introduction of Remdesivir Anti-infective into Peripheral Vein, Percutaneous Approach, New Technology Group 5 (ICD-10-PCS; principal; 2021-04-05)
PROC: XW0DXM6 Introduction of Baricitinib into Mouth and Pharynx, External Approach, New Technology Group 6 (ICD-10-PCS; 2021-04-05)
DX: U07.1 COVID-19 (principal); E11.10 Type 2 diabetes mellitus with ketoacidosis without coma; J96.01 Acute respiratory failure with hypoxia; J12.82 Pneumonia due to coronavirus disease 2019; E87.1 Hypo-osmolality and hyponatremia; I47.2 Ventricular tachycardia; D68.59 Other primary thrombophilia; B37.0 Candidal stomatitis; N17.9 Acute kidney failure, unspecified; E87.6 Hypokalemia; E11.65 Type 2 diabetes mellitus with hyperglycemia; E87.8 Other disorders of electrolyte and fluid balance, not elsewhere classified; I10 Essential (primary) hypertension; E83.42 Hypomagnesemia; E66.9 Obesity, unspecified; T38.0X5A Adverse effect of glucocorticoids and synthetic analogues, initial encounter; Z68.28 Body mass index [BMI] 28.0-28.9, adult; Z79.4 Long term (current) use of insulin; Y92.89 Other specified places as the place of occurrence of the external cause; Z91.14 Patient's other noncompliance with medication regimen; Z91.19 Patient's noncompliance with other medical treatment and regimen; Z83.3 Family history of diabetes mellitus; Z82.49 Family history of ischemic heart disease and other diseases of the circulatory system
CPT/HCPCS: 36415; 36600; 71045; 80048; 80053; 80076; 80305; 81001; 82435; 82728; 82803; 82947; 82948; 83036; 83605; 83615; 83735; 84132; 84145; 84295; 84484; 85018; 85025; 85378; 86140; 86701; 87390; 87635; 87804; 87880; 93005; 93970; 94760; C9803; G0378; J0456; J0696; J1100; J1650; J1815; J3475; J3480; J7030; J7050

== ENCOUNTER 2022-06-15 08:13 | Inpatient (IN) | payer OTHER ==
[~2022-06-15] VITALS: Ht 165.1 cm; Wt 79.6 kg
[~2022-06-15 08:13] MED LIST changes: +APIX2.5T PO; +DEXA6TAB PO; -DOXY100T2 PO; -FLUC200T8 PO; -HUM10VIA6 SQ; +MAGN400T53 PO; +METO25 PO; +PANT40TA55 PO; +POTA-79 PO
[2022-06-15 08:54] LABS: BASOPHILS % (AUTO) 0.3 % (0.0-5.0); EOSINOPHILS % (AUTO) 0.4 % (0.0-8.0); HEMATOCRIT 38.8 % (42-54); LYMPHOCYTES % (AUTO) 10.7 % (21.0-51.0); MEAN CORPUSCULAR HGB CONC 36.3 g/dL (32.0-36.0); MEAN CORPUSCULAR VOLUME 77.1 fL (79-99); MONOCYTES % (AUTO) 7.1 % (3.0-13.0); NEUTROPHILS % (AUTO) 80.9 % (40.0-77.0); PLATELET COUNT (AUTO) 466 K/uL (130-400); RED BLOOD CELL COUNT(AUTO) 5.03 MIL/uL (4.50-6.20); WHITE BLOOD COUNT (AUTO) 19.1 K/uL (4.8-10.8)
[2022-06-15] MEDS ORDERED: VANCOMYCIN 1G 2 GM in 0.9% NACL 500ML IV.SOLN 500 ML IV ONE (09:00)
[2022-06-15] MEDS ORDERED: INSULIN HUMULIN R 100 UNIT/ML 3ML IV SCH (09:00)
[2022-06-15] MEDS ORDERED: ZOSYN 3.375GM +NS 50ML IV SCH (09:00)
[2022-06-15] MEDS ORDERED: 0.9%NACL 1000ML 1,000 ML IV SCH ×3 (09:00→11:30)
[2022-06-15 09:10] LABS: ALBUMIN 2.8 g/dL (3.5-5.0); CREATININE 1.2 mg/dL (0.5-1.5); TOTAL PROTEIN, SERUM 8.7 g/dL (6.0-8.3)
[2022-06-15 09:21] LABS: CRP QUANTITATIVE 226.2 mg/L (0.00-9.0)
[2022-06-15] MEDS ORDERED: KCL 20 MEQ ERTAB PO SCH ×2 (09:30→13:30)
[2022-06-15 10:31] LABS: APPEARANCE,URINE CLEAR (CLEAR); BILIRUBIN,URINE NEGATIVE (NEGATIVE); COLOR,URINE LIGHT-YELLOW (YELLOW); GLUCOSE, URINE (UA) >=1000 mg/dL (NEGATIVE); KETONES,URINE 20 mg/dL (NEGATIVE); LEUKOCYTE ESTERASE ,URINE NEGATIVE Leu/uL (NEGATIVE); NITRATE,URINE NEGATIVE (NEGATIVE); OCCULT BLOOD,URINE NEGATIVE (NEGATIVE); PH,URINE 5.5 (5.0-8.0); PROTEIN,URINE 10 mg/dL (NEGATIVE); UROBILINOGEN,URINE 0.2 mg/dL (0.2-1.0)
[2022-06-15] MEDS: VANCOMYCIN 2GM/500 ML BAG 500 ML IV SCH (10:32)
[2022-06-15 10:52] LABS: SQUAMOUS EPITHELIAL CELL,UR RARE /HPF (0-2); WBC,URINE 0-1 /HPF (0-1)
[2022-06-15] MEDS ORDERED: HYDRALAZINE 20MG/ML VIAL IV PRN (11:00)
[2022-06-15] MEDS ORDERED: ASPIRIN 81MG CHEW TAB PO ONE (11:00)
[2022-06-15 11:12] LABS: ABG BASE EXCESS -6.8 mmol/L (-2.0-3.0); ABG HCO3 17.2 mmol/L (21.0-28.0); ABG OXYGEN SATURATION 95.1 % (95.0-99.0); ABG PCO2 30 mmHg (35-48)
[2022-06-15] MEDS ORDERED: INSULIN REGULAR, HUMAN 3ML 100 UNIT in 0.9%NACL 100ML 100 ML IV SCH ×2 (11:30)
[2022-06-15] MEDS ORDERED: POTASSIUM CHLORIDE 20MEQ/100ML 100 ML IV PRN (11:30)
[2022-06-15] MEDS ORDERED: DEXTROSE 5 %-0.45 % NACL 1,000 ML IV SCH (11:30)
[2022-06-15] MEDS ORDERED: FOLIC ACID 5 MG/ML VIAL IV ONE (11:30)
[2022-06-15] MEDS ORDERED: KCL 20 MEQ ERTAB PO ONE (11:30)
[2022-06-15] MEDS ORDERED: PANTOPRAZOLE 40 MG/VIAL IVP ONE (11:30)
[2022-06-15] MEDS ORDERED: MAGNESIUM 2GM PREMIX 50ML 50 ML IV SCH (11:30)
[2022-06-15] MEDS ORDERED: ACETAMINOPHEN 500 MG TABLET PO PRN (11:30)
[2022-06-15] MEDS ORDERED: HYDROMORPHONE 0.5 MG SYG (0.5MG/0.5ML) IVP PRN (11:30)
[2022-06-15] MEDS ORDERED: POTASSIUM CHLORIDE 10MEQ/100ML 100 ML IV PRN (11:30)
[2022-06-15] MEDS ORDERED: ONDANSETRON 4MG INJ IVP PRN (11:30)
[2022-06-15] MEDS ORDERED: POTASSIUM CHLORIDE 20 MEQ/10 ML VIAL IV SCH (11:30)
[2022-06-15 11:38] LABS: HEMOGLOBIN A1C 12.4 % (4.0-6.0)
[2022-06-15 11:44] LABS: MAGNESIUM 1.7 mg/dL (1.80-2.40); THYROID STIMULATING HORMONE 1.44 uIU/mL (0.36-3.74)
[2022-06-15 12:08] LABS: CREATININE 1.2 mg/dL (0.5-1.5)
[2022-06-15 12:25] LABS: POTASSIUM 2.8 mmol/L (3.5-5.1)
[2022-06-15] MEDS: THIAMINE HCL 100 MG/ML 2ML VIAL IVP SCH (12:48)
[2022-06-15] MEDS: CEFEPIME HCL 2 GM VIAL IVP SCH ×2 (12:57→22:57)
[2022-06-15 13:08] LABS: CREATININE 1.1 mg/dL (0.5-1.5); POTASSIUM 3.2 mmol/L (3.5-5.1)
[2022-06-15] MEDS: METRONIDAZOLE 500MG/100ML BAG 100 ML IVPB SCH ×3 (14:00→22:08)
[2022-06-15] MEDS ORDERED: POTASSIUM CHLORIDE 10MEQ SR TAB PO SCH (17:00)
[2022-06-15] MEDS ORDERED: D5W-1/2 NS/20MEQ KCL 1,000 ML IV ONE (18:41)
[2022-06-15 18:42] LABS: AMPHET/METH SCREEN,URINE NEGATIVE (NEGATIVE); BARBITURATE SCREEN, URINE NEGATIVE (NEGATIVE); BENZODIAZEPINES SCREEN,URINE NEGATIVE (NEGATIVE); CANNABINOID SCREEN,URINE NEGATIVE (NEGATIVE); COCAINE SCREEN,URINE NEGATIVE (NEGATIVE); OPIATE SCREEN,URINE NEGATIVE (NEGATIVE); PHENCYCLIDINE SCREEN,URINE NEGATIVE (NEGATIVE)
[2022-06-15] MEDS ORDERED: D5W-1/2 NS/20MEQ KCL 1,000 ML IV SCH ×2 (19:00)
[2022-06-15 20:26] LABS: POTASSIUM 3.8 mmol/L (3.5-5.1)
[2022-06-15] MEDS ORDERED: ATORVASTATIN 40 MG TABLET PO SCH (21:00)
[2022-06-15] MEDS ORDERED: INSU100I35 SQ (22:24)
[2022-06-15 22:31] VITALS: BP 139/85
[2022-06-15 23:01] VITALS: BP 124/76
[2022-06-16] VITALS (28 sets, daily range): BP systolic 111–148; BP diastolic 76–96
[2022-06-16 00:37] LABS: CREATININE 1.1 mg/dL (0.5-1.5)
[2022-06-16 04:16] LABS: BASOPHILS % (AUTO) 0.2 % (0.0-5.0); EOSINOPHILS % (AUTO) 0.4 % (0.0-8.0); HEMATOCRIT 32.2 % (42-54); LYMPHOCYTES % (AUTO) 10.2 % (21.0-51.0); MEAN CORPUSCULAR HEMOGLOBIN 27.8 pg (27.0-33.0); MEAN CORPUSCULAR HGB CONC 34.5 g/dL (32.0-36.0); MEAN CORPUSCULAR VOLUME 80.5 fL (79-99); MONOCYTES % (AUTO) 7.3 % (3.0-13.0); NEUTROPHILS % (AUTO) 81.4 % (40.0-77.0); PLATELET COUNT (AUTO) 336 K/uL (130-400); RED CELL DISTRIBUTION WIDTH 12.2 % (11.0-15.5); WHITE BLOOD COUNT (AUTO) 17.1 K/uL (4.8-10.8)
[2022-06-16 04:35] LABS: CRP QUANTITATIVE 148.6 mg/L (0.00-9.0); MAGNESIUM 1.4 mg/dL (1.80-2.40); POTASSIUM 3.9 mmol/L (3.5-5.1)
[2022-06-16] MEDS: MAGNESIUM 2GM PREMIX 50ML 50 ML IV SCH (05:13)
[2022-06-16] MEDS: METRONIDAZOLE 500MG/100ML BAG 100 ML IVPB SCH ×3 (05:14→21:36)
[2022-06-16] MEDS ORDERED: 0.9% NACL 500ML IV.SOLN 500 ML IV ONE ×2 (06:15→06:33)
[2022-06-16] MEDS ORDERED: INSULIN GLARGINE 100 UNITS/ML 10 ML VIAL SQ SCH ×3 (06:59→21:00)
[2022-06-16] MEDS ORDERED: INSULIN HUMULIN R 100 UNIT/ML 3ML SQ SCH ×2 (07:30)
[2022-06-16] MEDS: ENOXAPARIN SODIUM 40 MG/0.4 ML SYRINGE SQ SCH (09:00)
[2022-06-16] MEDS: LISINOPRIL 10 MG TABLET PO SCH (09:00)
[2022-06-16] MEDS ORDERED: INSULIN LISPRO 100 UNIT/ML 3ML SQ SCH (09:00)
[2022-06-16] MEDS: ASPIRIN 81MG CHEW TAB PO SCH (09:00)
[2022-06-16] MEDS ORDERED: ASPIRIN 81 MG EC TAB PO SCH (09:00)
[2022-06-16] MEDS: INSULIN GLARGINE 100 UNITS/ML 10 ML VIAL SQ SCH (09:02)
[2022-06-16 09:14] LABS: INR 1.05 (0.85-1.15); PROTHROMBIN TIME 11.4 SEC (9.6-11.6)
[2022-06-16 09:15] LABS: PARTIAL THROMBOPLASTIN TIME 38.4 SEC (26.3-35.5)
[2022-06-16] MEDS: VANCOMYCIN 2GM/500 ML BAG 500 ML IV SCH (09:30)
[2022-06-16] MEDS ORDERED: BUPIVACAINE/EPI/PF 0.5% 30ML VIAL IJ ONE (09:45)
[2022-06-16] MEDS ORDERED: LIDOCAINE HCL 1% 20 ML VIAL ONE (09:46)
[2022-06-16] MEDS: CEFEPIME HCL 2 GM VIAL IVP SCH ×2 (10:59→22:42)
[2022-06-16] MEDS: PANTOPRAZOLE 40 MG TAB DR PO SCH (11:00)
[2022-06-16] MEDS: 0.9%NACL 1000ML 1,000 ML IV SCH ×2 (11:00→18:08)
[2022-06-16] MEDS ORDERED: FENTANYL CITRATE PF 50 MCG/1 ML 2ML VIAL ONE ×2 (11:25→12:16)
[2022-06-16] MEDS ORDERED: MIDAZOLAM HCL 1 MG/ML 2ML VIAL ONE ×2 (11:25→12:19)
[2022-06-16] MEDS: THIAMINE HCL 100 MG/ML 2ML VIAL IVP SCH (11:30)
[2022-06-16] MEDS ORDERED: LIDOCAINE HCL 1% 20 ML VIAL INJ ONE (12:09)
[2022-06-16] MEDS ORDERED: BUPIVACAINE/EPI/PF 0.25% 30ML VIAL IJ ONE (12:10)
[2022-06-16] MEDS: INSULIN HUMULIN R 100 UNIT/ML 3ML SQ SCH ×3 (16:46→21:00)
[2022-06-16] MEDS: ATORVASTATIN 40 MG TABLET PO SCH (21:36)
[2022-06-17] VITALS: BP 136/93
[2022-06-17 04:00] VITALS: BP 141/88
[2022-06-17 04:56] LABS: BASOPHILS % (AUTO) 0.2 % (0.0-5.0); EOSINOPHILS % (AUTO) 0.6 % (0.0-8.0); HEMATOCRIT 31.6 % (42-54); LYMPHOCYTES % (AUTO) 12.5 % (21.0-51.0); MEAN CORPUSCULAR HEMOGLOBIN 27.5 pg (27.0-33.0); MEAN CORPUSCULAR HGB CONC 35.1 g/dL (32.0-36.0); MEAN CORPUSCULAR VOLUME 78.4 fL (79-99); MONOCYTES % (AUTO) 8.2 % (3.0-13.0); PLATELET COUNT (AUTO) 368 K/uL (130-400); RED BLOOD CELL COUNT(AUTO) 4.03 MIL/uL (4.50-6.20); RED CELL DISTRIBUTION WIDTH 12.5 % (11.0-15.5); WHITE BLOOD COUNT (AUTO) 10.9 K/uL (4.8-10.8)
[2022-06-17] MEDS: METRONIDAZOLE 500MG/100ML BAG 100 ML IVPB SCH ×3 (05:08→21:15)
[2022-06-17] MEDS: 0.9%NACL 1000ML 1,000 ML IV SCH (05:08)
[2022-06-17 05:11] LABS: MAGNESIUM 1.4 mg/dL (1.80-2.40); POTASSIUM 3.3 mmol/L (3.5-5.1)
[2022-06-17] MEDS ORDERED: POTASSIUM CHLORIDE 20MEQ/100ML 100 ML IV PRN (05:30)
[2022-06-17] MEDS ORDERED: LIDOCAINE HCL-MPF 1% 2ML VIAL IV PRN (05:30)
[2022-06-17] MEDS: KCL 20 MEQ ERTAB PO PRN (05:52)
[2022-06-17] MEDS: MAGNESIUM 2GM PREMIX 50ML 50 ML IV SCH (05:52)
[2022-06-17] MEDS: INSULIN HUMULIN R 100 UNIT/ML 3ML SQ SCH ×7 (05:53→20:47)
[2022-06-17 07:25] VITALS: BP 149/90
[2022-06-17] MEDS: LISINOPRIL 10 MG TABLET PO SCH (08:42)
[2022-06-17] MEDS: ASPIRIN 81MG CHEW TAB PO SCH (08:42)
[2022-06-17] MEDS: ENOXAPARIN SODIUM 40 MG/0.4 ML SYRINGE SQ SCH (08:42)
[2022-06-17] MEDS: PANTOPRAZOLE 40 MG TAB DR PO SCH (08:42)
[2022-06-17] MEDS: POTASSIUM CHLORIDE 10% ELIXIR 20 MEQ/15 ML UDCUP PO PRN ×2 (08:43→14:28)
[2022-06-17] MEDS: INSULIN GLARGINE 100 UNITS/ML 10 ML VIAL SQ SCH (09:08)
[2022-06-17] MEDS: VANCOMYCIN 2GM/500 ML BAG 500 ML IV SCH (09:30)
[2022-06-17] MEDS: CEFEPIME HCL 2 GM VIAL IVP SCH ×2 (11:15→23:01)
[2022-06-17] MEDS: THIAMINE HCL 100 MG/ML 2ML VIAL IVP SCH (11:30)
[2022-06-17 11:43] VITALS: BP 122/91
[2022-06-17] MEDS ORDERED: IOHEXOL 350 MG/ML 100ML INFUS..BTL IV ONE (11:47)
[2022-06-17] MEDS ORDERED: IOHEXOL-350 50ML VIAL IV ONE (11:48)
[2022-06-17 15:59] VITALS: BP 114/77
[2022-06-17 20:00] VITALS: BP 119/80
[2022-06-17] MEDS: ATORVASTATIN 40 MG TABLET PO SCH (21:15)
[2022-06-18] VITALS: BP 135/87
[2022-06-18] MEDS: 0.9%NACL 1000ML 1,000 ML IV SCH ×2 (01:00→11:20)
[2022-06-18 04:00] VITALS: BP 126/85
[2022-06-18] MEDS: METRONIDAZOLE 500MG/100ML BAG 100 ML IVPB SCH ×3 (05:25→22:00)
[2022-06-18] MEDS: INSULIN HUMULIN R 100 UNIT/ML 3ML SQ SCH ×7 (05:34→20:39)
[2022-06-18 07:16] LABS: BASOPHILS % (AUTO) 0.4 % (0.0-5.0); EOSINOPHILS % (AUTO) 1.3 % (0.0-8.0); HEMATOCRIT 32.8 % (42-54); MEAN CORPUSCULAR HEMOGLOBIN 27.8 pg (27.0-33.0); MEAN CORPUSCULAR HGB CONC 34.1 g/dL (32.0-36.0); MEAN CORPUSCULAR VOLUME 81.4 fL (79-99); MONOCYTES % (AUTO) 11.3 % (3.0-13.0); NEUTROPHILS % (AUTO) 68.2 % (40.0-77.0); PLATELET COUNT (AUTO) 384 K/uL (130-400); RED BLOOD CELL COUNT(AUTO) 4.03 MIL/uL (4.50-6.20); RED CELL DISTRIBUTION WIDTH 12.4 % (11.0-15.5); WHITE BLOOD COUNT (AUTO) 7.5 K/uL (4.8-10.8)
[2022-06-18 07:25] LABS: POTASSIUM 3.3 mmol/L (3.5-5.1)
[2022-06-18 07:30] VITALS: BP 146/86
[2022-06-18] MEDS: VANCOMYCIN 2GM/500 ML BAG 500 ML IV SCH (07:53)
[2022-06-18] MEDS: LISINOPRIL 10 MG TABLET PO SCH (08:38)
[2022-06-18] MEDS: KCL 20 MEQ ERTAB PO PRN ×3 (08:39→13:41)
[2022-06-18] MEDS: PANTOPRAZOLE 40 MG TAB DR PO SCH (08:40)
[2022-06-18] MEDS: ASPIRIN 81MG CHEW TAB PO SCH (08:40)
[2022-06-18] MEDS: ENOXAPARIN SODIUM 40 MG/0.4 ML SYRINGE SQ SCH ×2 (08:41→08:48)
[2022-06-18] MEDS: INSULIN GLARGINE 100 UNITS/ML 10 ML VIAL SQ SCH (08:42)
[2022-06-18] MEDS: THIAMINE HCL 100 MG/ML 2ML VIAL IVP SCH (10:09)
[2022-06-18] MEDS: CEFEPIME HCL 2 GM VIAL IVP SCH ×2 (10:55→22:00)
[2022-06-18 11:30] VITALS: BP 159/108
[2022-06-18 16:00] VITALS: BP 153/105
[2022-06-18 20:00] VITALS: BP 150/94
[2022-06-18] MEDS: ATORVASTATIN 40 MG TABLET PO SCH (20:38)
[2022-06-19] VITALS: BP 143/97
[2022-06-19 04:00] VITALS: BP 147/97
[2022-06-19] MEDS: METRONIDAZOLE 500MG/100ML BAG 100 ML IVPB SCH ×2 (04:52→14:32)
[2022-06-19 05:11] LABS: HEMATOCRIT 30.5 % (42-54); MEAN CORPUSCULAR HEMOGLOBIN 27.1 pg (27.0-33.0); MEAN CORPUSCULAR HGB CONC 34.8 g/dL (32.0-36.0); RED BLOOD CELL COUNT(AUTO) 3.91 MIL/uL (4.50-6.20); RED CELL DISTRIBUTION WIDTH 12.6 % (11.0-15.5); WHITE BLOOD COUNT (AUTO) 6.2 K/uL (4.8-10.8)
[2022-06-19 05:26] LABS: POTASSIUM 3.5 mmol/L (3.5-5.1)
[2022-06-19] MEDS: INSULIN HUMULIN R 100 UNIT/ML 3ML SQ SCH ×4 (06:43→11:43)
[2022-06-19] MEDS: 0.9%NACL 1000ML 1,000 ML IV SCH (07:00)
[2022-06-19 08:00] VITALS: BP 152/98
[2022-06-19] MEDS: INSULIN GLARGINE 100 UNITS/ML 10 ML VIAL SQ SCH (08:32)
[2022-06-19] MEDS: LISINOPRIL 10 MG TABLET PO SCH (08:35)
[2022-06-19] MEDS: ASPIRIN 81MG CHEW TAB PO SCH (08:35)
[2022-06-19] MEDS: PANTOPRAZOLE 40 MG TAB DR PO SCH (08:35)
[2022-06-19] MEDS: ENOXAPARIN SODIUM 40 MG/0.4 ML SYRINGE SQ SCH (08:36)
[2022-06-19] MEDS: THIAMINE HCL 100 MG/ML 2ML VIAL IVP SCH (10:57)
[2022-06-19] MEDS: CEFEPIME HCL 2 GM VIAL IVP SCH (10:57)
[2022-06-19 11:00] VITALS: BP 135/91
[2022-06-19] MEDS: KCL 20 MEQ ERTAB PO PRN ×2 (11:00→14:38)
[2022-06-19] MEDS ORDERED: INSU100I35 SQ ×2 (11:58)
[2022-06-19] MEDS ORDERED: AEC81 PO (11:58)
[2022-06-19] MEDS ORDERED: AMOX500T2 PO (11:58)
[2022-06-19] MEDS ORDERED: LISI10TA24 PO (11:58)
[2022-06-19] MEDS ORDERED: ATOR40TA69 PO (11:58)
== END 2022-06-19 18:30 | disposition home or self-care (01) | DRG 853 ==
LOC: EDH 08:13 → EDHIP 08:14 → 2BH 22:00 → 3AH 06-16 12:12
PROVIDERS: ADMIT Internal Medicine; ATTEND Internal Medicine
PROC: 0Y6V0Z0 Detachment at Right 4th Toe, Complete, Open Approach (ICD-10-PCS; 2022-06-16)
PROC: 0Y6T0Z0 Detachment at Right 3rd Toe, Complete, Open Approach (ICD-10-PCS; 2022-06-16)
PROC: 0Y6R0Z0 Detachment at Right 2nd Toe, Complete, Open Approach (ICD-10-PCS; principal; 2022-06-16 11:45)
DX: A41.9 Sepsis, unspecified organism (principal); E11.10 Type 2 diabetes mellitus with ketoacidosis without coma; E11.52 Type 2 diabetes mellitus with diabetic peripheral angiopathy with gangrene; L03.115 Cellulitis of right lower limb; Z20.822 Contact with and (suspected) exposure to COVID-19; E87.6 Hypokalemia; I10 Essential (primary) hypertension; I73.9 Peripheral vascular disease, unspecified; E11.65 Type 2 diabetes mellitus with hyperglycemia; I34.0 Nonrheumatic mitral (valve) insufficiency; E83.42 Hypomagnesemia; Z86.16 Personal history of COVID-19; Z83.3 Family history of diabetes mellitus; Z79.899 Other long term (current) drug therapy; Z79.4 Long term (current) use of insulin; Z91.14 Patient's other noncompliance with medication regimen
CPT/HCPCS: 36415; 36600; 71045; 73660; 73718; 75635; 80048; 80053; 80061; 80305; 81001; 82010; 82435; 82550; 82803; 82947; 82948; 83036; 83605; 83735; 84132; 84145; 84295; 84443; 84484; 85018; 85025; 85027; 85610; 85651; 85730; 86140; 87040; 87070; 87076; 87077; 87186; 87635; 87804; 93306; 93356; 93925; 97039; 99291; C9113; C9803; G0378; J0360; J0692; J1650; J1815; J2250; J2543; J3010; J3411; J3475; J3480; J3490; J7030; J7040; Q9967

== ENCOUNTER 2022-07-12 19:18 | Inpatient (IN) | payer BC, OTHER ==
[~2022-07-12] VITALS: Ht 165.1 cm; Wt 89.6 kg
[~2022-07-12 19:18] MED LIST changes: +AEC81 PO; +AMOX500T2 PO; -APIX2.5T PO; +ATOR40TA69 PO; -DEXA6TAB PO; +INSU100I35 SQ; +LISI10TA24 PO; -MAGN400T53 PO; -METO25 PO; -PANT40TA55 PO; -POTA-79 PO
[2022-07-12 19:45] VITALS: BP 86/56
[2022-07-12] MEDS ORDERED: ACETAMINOPHEN 650 MG SUPPOSITORY RC PRN (21:00)
[2022-07-12] MEDS ORDERED: MORPHINE 4 MG SYG IV PRN (21:00)
[2022-07-12] MEDS ORDERED: VANCOMYCIN PROTOCOL PER PHARMACY IV PRN (21:00)
[2022-07-12] MEDS ORDERED: MORPHINE 2 MG SYG IV PRN (21:00)
[2022-07-12] MEDS ORDERED: PHARMACY COMMUNICATION MISC SCH (21:00)
[2022-07-12 21:19] LABS: BASOPHILS % (AUTO) 0.3 % (0.0-5.0); HEMATOCRIT 28.8 % (42-54); LYMPHOCYTES % (AUTO) 4.7 % (21.0-51.0); MEAN CORPUSCULAR HEMOGLOBIN 26.6 pg (27.0-33.0); MEAN CORPUSCULAR HGB CONC 35.4 g/dL (32.0-36.0); NEUTROPHILS % (AUTO) 87.4 % (40.0-77.0); PLATELET COUNT (AUTO) 697 K/uL (130-400); RED BLOOD CELL COUNT(AUTO) 3.84 MIL/uL (4.50-6.20); RED CELL DISTRIBUTION WIDTH 14.6 % (11.0-15.5)
[2022-07-12 21:21] LABS: WHITE BLOOD COUNT (AUTO) 41.5 K/uL (4.8-10.8)
[2022-07-12 21:28] LABS: HEMOGLOBIN A1C 10.2 % (4.0-6.0)
[2022-07-12] MEDS ORDERED: VANCOMYCIN 1.5 GM/250 ML BAG 250 ML IV ONE (21:30)
[2022-07-12 21:34] LABS: ALBUMIN 1.7 g/dL (3.5-5.0); MAGNESIUM 2.3 mg/dL (1.80-2.40); PHOSPHORUS 8.3 mg/dL (2.5-4.9); POTASSIUM 4.4 mmol/L (3.5-5.1)
[2022-07-12 21:35] LABS: INR 1.14 (0.85-1.15); PROTHROMBIN TIME 12.3 SEC (9.6-11.6)
[2022-07-12 21:36] LABS: PARTIAL THROMBOPLASTIN TIME 39.3 SEC (26.3-35.5)
[2022-07-12 21:37] LABS: BAND NEUTROPHILS % (MANUAL) 9 % (0-2); LYMPHOCYTES % (MANUAL) 4 % (22-44); MONOCYTES % (MANUAL) 4 % (2-9); REACTIVE LYMPHOCYTES 1 % (0-0); SEGMENTED NEUTROPHILS % 82 % (40-70)
[2022-07-12 21:38] LABS: MAN.DIFF COMMENT-IMPRESSION MANUAL DIFFERENTIAL
[2022-07-12] MEDS: LACTATED RINGERS 1000ML 1,000 ML IV SCH ×3 (21:50→22:58)
[2022-07-12] MEDS: CEFEPIME HCL 2 GM VIAL IVP SCH (21:51)
[2022-07-12] MEDS: FAMOTIDINE 20MG VIAL IV SCH (21:51)
[2022-07-13] VITALS (9 sets, daily range): BP systolic 91–158; BP diastolic 46–71
[2022-07-13 06:24] LABS: BASOPHILS % (AUTO) 0.3 % (0.0-5.0); EOSINOPHILS % (AUTO) 0.1 % (0.0-8.0); HEMATOCRIT 25.7 % (42-54); LYMPHOCYTES % (AUTO) 4.9 % (21.0-51.0); MEAN CORPUSCULAR HEMOGLOBIN 26.9 pg (27.0-33.0); MEAN CORPUSCULAR VOLUME 76.9 fL (79-99); MONOCYTES % (AUTO) 6.5 % (3.0-13.0); NEUTROPHILS % (AUTO) 85.5 % (40.0-77.0); PLATELET COUNT (AUTO) 629 K/uL (130-400); RED BLOOD CELL COUNT(AUTO) 3.34 MIL/uL (4.50-6.20); RED CELL DISTRIBUTION WIDTH 14.4 % (11.0-15.5)
[2022-07-13 06:35] LABS: CREATININE 3.1 mg/dL (0.5-1.5); POTASSIUM 3.9 mmol/L (3.5-5.1)
[2022-07-13] MEDS ORDERED: ENOXAPARIN SODIUM 40 MG/0.4 ML SYRINGE SQ SCH (09:00)
[2022-07-13] MEDS ORDERED: VANCOMYCIN 1G/250ML KIT 250 ML IV SCH (09:00)
[2022-07-13] MEDS: FAMOTIDINE 20MG VIAL IV SCH (09:24)
[2022-07-13] MEDS: CEFEPIME HCL 2 GM VIAL IVP SCH (09:28)
[2022-07-13] MEDS: LACTATED RINGERS 1000ML 1,000 ML IV SCH (10:20)
[2022-07-13] MEDS: LINEZOLID 600 MG/ISO-OSM 300 ML IV SCH ×2 (11:11→23:49)
[2022-07-13] MEDS: SEVELAMER HCL 800 MG TABLET PO SCH (11:12)
[2022-07-13 15:07] LABS: ABG BASE EXCESS -14.5 mmol/L (-2.0-3.0); ABG OXYGEN SATURATION 96.9 % (95.0-99.0); ABG PCO2 22 mmHg (35-48)
[2022-07-13] MEDS ORDERED: 0.9%NACL 1000ML 1,845 ML IV SCH (15:30)
[2022-07-13] MEDS ORDERED: NOREPINEPHRIN 4MG/NS 250ML 250 ML IV SCH (15:30)
[2022-07-13] MEDS ORDERED: SODIUM BICARB 50MEQ 50ML VIAL IV SCH (15:38)
[2022-07-13] MEDS ORDERED: SODIUM BICARB 50MEQ 50ML VIAL 50 ML ONE ×2 (15:39→18:48)
[2022-07-13] MEDS ORDERED: 0.9%NACL 1000ML 1,000 ML IV SCH (16:00)
[2022-07-13 16:27] LABS: THYROID STIMULATING HORMONE 3.12 uIU/mL (0.36-3.74)
[2022-07-13] MEDS ORDERED: ROCURONIUM 10MG/1ML SYR 10 MG/ML ML ONE ×3 (17:49→22:30)
[2022-07-13] MEDS ORDERED: ONDANSETRON 4MG INJ ONE (17:49)
[2022-07-13] MEDS ORDERED: FENTANYL CITRATE PF 50 MCG/1 ML 5ML AMP IV ONE ×2 (17:49→21:39)
[2022-07-13] MEDS ORDERED: MIDAZOLAM HCL 1 MG/ML 2ML VIAL ONE (17:49)
[2022-07-13] MEDS ORDERED: SUCCINYLCHOLINE 200MG/10ML SYR ONE (17:49)
[2022-07-13] MEDS ORDERED: PROPOFOL 10 MG/ML 20ML VIAL IV ONE ×2 (17:49→22:20)
[2022-07-13 20:44] LABS: ABG BASE EXCESS -15.8 mmol/L (-2.0-3.0); ABG HCO3 13.1 mmol/L (21.0-28.0); ABG OXYGEN SATURATION 99.1 % (95.0-99.0); ABG PCO2 43 mmHg (35-48)
[2022-07-13 21:25] LABS: ABG BASE EXCESS -5.7 mmol/L (-2.0-3.0); ABG HCO3 18.9 mmol/L (21.0-28.0); ABG PCO2 34 mmHg (35-48)
[2022-07-13] MEDS ORDERED: PHENYLEPHRINE HCL 10 MG/ML 1ML VIAL IV ONE (21:44)
[2022-07-13] MEDS: PROPOFOL 1000 MG/100 ML 100 ML IV SCH (23:48)
[2022-07-13] MEDS: METRONIDAZOLE 500MG/100ML BAG 100 ML IVPB SCH (23:49)
[2022-07-14] VITALS (56 sets, daily range): BP systolic 91–157; BP diastolic 49–77
[2022-07-14 00:27] LABS: ABG BASE EXCESS -8.4 mmol/L (-2.0-3.0); ABG OXYGEN SATURATION 97.5 % (95.0-99.0); ABG PCO2 40 mmHg (35-48)
[2022-07-14] MEDS ORDERED: SODIUM BICARB 50MEQ 50ML VIAL IV STA (00:48)
[2022-07-14] MEDS ORDERED: SODIUM BICARB 50MEQ 50ML VIAL IVPB STA (00:55)
[2022-07-14] MEDS ORDERED: FENTANYL 2500MCG+NS 250ML IV.SOLN IV SCH ×2 (01:00→01:30)
[2022-07-14] MEDS ORDERED: SODIUM BICARB 8.4% 50ML SYRING 150 MEQ in 0.9%NACL 1000ML 1,000 ML IVP SCH (01:30)
[2022-07-14] MEDS ORDERED: PHARMACY COMMUNICATION MISC SCH (02:00)
[2022-07-14] MEDS ORDERED: DEXTROSE 5%-WATER 1,000 ML IV ONE (02:17)
[2022-07-14] MEDS ORDERED: SODIUM BICARB 8.4% 50ML SYRING 150 MEQ in DEXTROSE 5%-WATER 1,000 ML IVP SCH (02:30)
[2022-07-14] MEDS: PROPOFOL 1000 MG/100 ML 100 ML IV SCH (03:04)
[2022-07-14 04:59] LABS: HEMATOCRIT 24.6 % (42-54); MEAN CORPUSCULAR HEMOGLOBIN 26.4 pg (27.0-33.0); MEAN CORPUSCULAR HGB CONC 35.4 g/dL (32.0-36.0); MEAN CORPUSCULAR VOLUME 74.8 fL (79-99); RED BLOOD CELL COUNT(AUTO) 3.29 MIL/uL (4.50-6.20); RED CELL DISTRIBUTION WIDTH 14.6 % (11.0-15.5); WHITE BLOOD COUNT (AUTO) 25.6 K/uL (4.8-10.8)
[2022-07-14 05:12] LABS: ALBUMIN 1.3 g/dL (3.5-5.0); CREATININE 2.4 mg/dL (0.5-1.5); PHOSPHORUS 6.9 mg/dL (2.5-4.9); TOTAL PROTEIN, SERUM 6.6 g/dL (6.0-8.3)
[2022-07-14] MEDS: METRONIDAZOLE 500MG/100ML BAG 100 ML IVPB SCH ×3 (05:26→22:22)
[2022-07-14 05:47] LABS: % IRON SATURATION 38.4 % (30-44)
[2022-07-14] MEDS: INSULIN HUMULIN R 100 UNIT/ML 3ML SQ SCH ×2 (06:46→10:27)
[2022-07-14] MEDS: SEVELAMER HCL 800 MG TABLET PO SCH ×3 (08:00→16:16)
[2022-07-14] MEDS: DEXTROSE 5 %-0.45 % NACL 1,000 ML IV SCH (08:00)
[2022-07-14] MEDS: CEFEPIME HCL 2 GM VIAL IVP SCH ×3 (08:00→20:27)
[2022-07-14] MEDS: SODIUM BICARBONATE 650 MG TAB PO SCH ×2 (08:00→16:16)
[2022-07-14] MEDS: FAMOTIDINE 20MG VIAL IV SCH ×3 (08:00→20:26)
[2022-07-14] MEDS: CALCITRIOL 0.25 MCG CAP PO SCH (08:13)
[2022-07-14 08:44] LABS: CREATININE 2.4 mg/dL (0.5-1.5)
[2022-07-14] MEDS ORDERED: SODIUM BICARB 8.4% 50ML SYRING 150 MEQ in DEXTROSE 5%-WATER 850 ML IVP SCH (09:30)
[2022-07-14] MEDS ORDERED: MAGNESIUM 2GM PREMIX 50ML 50 ML IV PRN (09:30)
[2022-07-14] MEDS ORDERED: LIDOCAINE HCL-MPF 1% 2ML VIAL IV PRN ×2 (09:30)
[2022-07-14] MEDS ORDERED: POTASSIUM CHLORIDE 10MEQ/100ML 100 ML IV PRN ×2 (09:30)
[2022-07-14] MEDS ORDERED: 0.9%NACL 1000ML 1,000 ML IV SCH (09:30)
[2022-07-14] MEDS ORDERED: POTASSIUM CHLORIDE 20 MEQ/10 ML VIAL IV SCH (09:30)
[2022-07-14] MEDS ORDERED: DEXTROSE 5 %-0.45 % NACL 1,000 ML IV SCH (09:30)
[2022-07-14] MEDS ORDERED: POTASSIUM CHLORIDE 10% ELIXIR 20 MEQ/15 ML UDCUP PO PRN (09:30)
[2022-07-14] MEDS ORDERED: INSULIN GLARGINE 100 UNITS/ML 10 ML VIAL SQ SCH (10:00)
[2022-07-14] MEDS ORDERED: INSULIN GLARGINE 100 UNITS/ML 10 ML VIAL SQ ONE (10:00)
[2022-07-14 10:24] LABS: APPEARANCE,URINE TURBID (CLEAR); BILIRUBIN,URINE NEGATIVE (NEGATIVE); COLOR,URINE YELLOW (YELLOW); GLUCOSE, URINE (UA) NEGATIVE (NEGATIVE); KETONES,URINE 5 mg/dL (NEGATIVE); LEUKOCYTE ESTERASE ,URINE 500 Leu/uL (NEGATIVE); NITRATE,URINE NEGATIVE (NEGATIVE); OCCULT BLOOD,URINE LARGE (NEGATIVE); PROTEIN,URINE 30 mg/dL (NEGATIVE); UROBILINOGEN,URINE 0.2 mg/dL (0.2-1.0)
[2022-07-14] MEDS: LINEZOLID 600 MG/ISO-OSM 300 ML IV SCH ×2 (10:24→22:23)
[2022-07-14] MEDS: INSULIN REGULAR, HUMAN 3ML 100 UNIT in 0.9%NACL 100ML 100 ML IV SCH ×4 (10:26→16:10)
[2022-07-14 10:33] LABS: BACTERIA,URINE MOD /HPF (None Seen); MUCUS,URINE RARE LPF (None Seen); RBC,URINE TNTC /HPF (0-1); SQUAMOUS EPITHELIAL CELL,UR FEW /HPF (0-2); WBC,URINE TNTC /HPF (0-1)
[2022-07-14] MEDS: ONDANSETRON 4MG INJ IV PRN ×2 (10:39→16:19)
[2022-07-14 10:48] LABS: ABG BASE EXCESS -2.2 mmol/L (-2.0-3.0); ABG HCO3 20.8 mmol/L (21.0-28.0); ABG OXYGEN SATURATION 98.7 % (95.0-99.0); ABG PCO2 31 mmHg (35-48)
[2022-07-14 12:06] LABS: CREATININE 2.2 mg/dL (0.5-1.5); POTASSIUM 3.5 mmol/L (3.5-5.1)
[2022-07-14] MEDS: NS-20 MEQ KCL 1000ML 1,000 ML IV SCH ×2 (12:43→18:25)
[2022-07-14 16:15] LABS: CREATININE 2.2 mg/dL (0.5-1.5); POTASSIUM 3.1 mmol/L (3.5-5.1)
[2022-07-14] MEDS: POTASSIUM CHLORIDE 10MEQ/100ML 100 ML IV PRN ×4 (16:45→22:23)
[2022-07-14] MEDS: D5W-1/2 NS/20MEQ KCL 1,000 ML IV SCH (18:20)
[2022-07-14 20:51] LABS: CREATININE 1.8 mg/dL (0.5-1.5); POTASSIUM 3.9 mmol/L (3.5-5.1)
[2022-07-14] MEDS: INSULIN GLARGINE 100 UNITS/ML 10 ML VIAL SQ SCH (21:07)
[2022-07-14 21:55] LABS: AMPHET/METH SCREEN,URINE NEGATIVE (NEGATIVE); BARBITURATE SCREEN, URINE NEGATIVE (NEGATIVE); BENZODIAZEPINES SCREEN,URINE POSITIVE (NEGATIVE); CANNABINOID SCREEN,URINE NEGATIVE (NEGATIVE); COCAINE SCREEN,URINE NEGATIVE (NEGATIVE); CREATININE,URINE RANDOM 119 mg/dL (30-135); OPIATE SCREEN,URINE NEGATIVE (NEGATIVE); PHENCYCLIDINE SCREEN,URINE NEGATIVE (NEGATIVE); PROTEIN,URINE RANDOM 82.9 mg/dL (0-11.9)
[2022-07-15] VITALS (14 sets, daily range): BP systolic 97–147; BP diastolic 54–91
[2022-07-15] MEDS: D5W-1/2 NS/20MEQ KCL 1,000 ML IV SCH (00:29)
[2022-07-15 00:43] LABS: CREATININE 1.7 mg/dL (0.5-1.5); MAGNESIUM 1.9 mg/dL (1.80-2.40); POTASSIUM 4.1 mmol/L (3.5-5.1)
[2022-07-15] MEDS ORDERED: SODIUM BICARB 8.4% 50ML SYRING 150 MEQ in DEXTROSE 5%-WATER 1,000 ML IVP SCH (01:30)
[2022-07-15] MEDS: ONDANSETRON 4MG INJ IV PRN (05:05)
[2022-07-15] MEDS: METRONIDAZOLE 500MG/100ML BAG 100 ML IVPB SCH (05:06)
[2022-07-15] MEDS: INSULIN HUMULIN R 100 UNIT/ML 3ML SQ SCH ×4 (06:05→21:00)
[2022-07-15] MEDS: INSULIN GLARGINE 100 UNITS/ML 10 ML VIAL SQ SCH ×2 (06:06→21:48)
[2022-07-15 07:52] LABS: BASOPHILS % (AUTO) 0.1 % (0.0-5.0); EOSINOPHILS % (AUTO) 0.2 % (0.0-8.0); HEMATOCRIT 22.3 % (42-54); LYMPHOCYTES % (AUTO) 13.4 % (21.0-51.0); MEAN CORPUSCULAR HEMOGLOBIN 26.2 pg (27.0-33.0); MEAN CORPUSCULAR HGB CONC 34.1 g/dL (32.0-36.0); MEAN CORPUSCULAR VOLUME 76.9 fL (79-99); MONOCYTES % (AUTO) 8.8 % (3.0-13.0); NEUTROPHILS % (AUTO) 76.1 % (40.0-77.0); NUCLEATED RED BLOOD CELLS 0.1 % (0.0-0.19); PLATELET COUNT (AUTO) 506 K/uL (130-400); RED CELL DISTRIBUTION WIDTH 14.7 % (11.0-15.5); WHITE BLOOD COUNT (AUTO) 13.7 K/uL (4.8-10.8)
[2022-07-15 08:08] LABS: CREATININE 1.5 mg/dL (0.5-1.5); POTASSIUM 4.1 mmol/L (3.5-5.1)
[2022-07-15] MEDS: SODIUM BICARBONATE 650 MG TAB PO SCH ×2 (08:59→17:00)
[2022-07-15] MEDS: SEVELAMER HCL 800 MG TABLET PO SCH ×3 (08:59→17:00)
[2022-07-15] MEDS: PANTOPRAZOLE 40 MG TAB DR PO SCH (10:32)
[2022-07-15] MEDS: CEFEPIME HCL 2 GM VIAL IVP SCH (10:32)
[2022-07-15] MEDS: CALCITRIOL 0.25 MCG CAP PO SCH (10:32)
[2022-07-15] MEDS: FAMOTIDINE 20MG VIAL IV SCH ×2 (10:32→21:44)
[2022-07-15] MEDS: ENOXAPARIN SODIUM 40 MG/0.4 ML SYRINGE SQ SCH (10:32)
[2022-07-15] MEDS: LINEZOLID 600 MG/ISO-OSM 300 ML IV SCH (10:47)
[2022-07-15] MEDS: 0.9%NACL 1000ML 1,000 ML IV SCH ×2 (12:00→21:30)
[2022-07-16] VITALS (7 sets, daily range): BP systolic 117–149; BP diastolic 84–97
[2022-07-16 05:01] LABS: POTASSIUM 3.9 mmol/L (3.5-5.1)
[2022-07-16] MEDS: INSULIN HUMULIN R 100 UNIT/ML 3ML SQ SCH ×4 (06:27→21:00)
[2022-07-16] MEDS: PANTOPRAZOLE 40 MG TAB DR PO SCH (08:32)
[2022-07-16] MEDS: SEVELAMER HCL 800 MG TABLET PO SCH ×3 (08:32→16:53)
[2022-07-16] MEDS: FAMOTIDINE 20MG VIAL IV SCH ×2 (08:33→21:05)
[2022-07-16] MEDS: SODIUM BICARBONATE 650 MG TAB PO SCH ×2 (08:33→16:53)
[2022-07-16] MEDS: CALCITRIOL 0.25 MCG CAP PO SCH (08:33)
[2022-07-16] MEDS: INSULIN GLARGINE 100 UNITS/ML 10 ML VIAL SQ SCH ×2 (08:35→21:00)
[2022-07-16] MEDS: ENOXAPARIN SODIUM 40 MG/0.4 ML SYRINGE SQ SCH (08:36)
[2022-07-16] MEDS: 0.9%NACL 1000ML 1,000 ML IV SCH ×3 (08:38→21:05)
[2022-07-16] MEDS: ASCORBIC ACID 500 MG TAB PO SCH (10:47)
[2022-07-16 15:50] LABS: HEMATOCRIT 25.1 % (42-54)
[2022-07-17 04:35] VITALS: BP 142/93
[2022-07-17] MEDS: INSULIN HUMULIN R 100 UNIT/ML 3ML SQ SCH ×4 (05:18→21:00)
[2022-07-17 05:36] LABS: BASOPHILS % (AUTO) 0.3 % (0.0-5.0); EOSINOPHILS % (AUTO) 0.8 % (0.0-8.0); HEMATOCRIT 24.3 % (42-54); LYMPHOCYTES % (AUTO) 27.7 % (21.0-51.0); MEAN CORPUSCULAR HEMOGLOBIN 26.5 pg (27.0-33.0); MEAN CORPUSCULAR HGB CONC 32.5 g/dL (32.0-36.0); MEAN CORPUSCULAR VOLUME 81.5 fL (79-99); MONOCYTES % (AUTO) 8.4 % (3.0-13.0); NEUTROPHILS % (AUTO) 61.9 % (40.0-77.0); PLATELET COUNT (AUTO) 458 K/uL (130-400); RED BLOOD CELL COUNT(AUTO) 2.98 MIL/uL (4.50-6.20); WHITE BLOOD COUNT (AUTO) 6.7 K/uL (4.8-10.8)
[2022-07-17 06:00] LABS: ALBUMIN 1.4 g/dL (3.5-5.0); CREATININE 0.9 mg/dL (0.5-1.5); MAGNESIUM 1.6 mg/dL (1.80-2.40); POTASSIUM 3.7 mmol/L (3.5-5.1)
[2022-07-17] MEDS: INSULIN GLARGINE 100 UNITS/ML 10 ML VIAL SQ SCH ×2 (06:32→21:02)
[2022-07-17 08:00] VITALS: BP 159/93
[2022-07-17] MEDS: CALCITRIOL 0.25 MCG CAP PO SCH (09:06)
[2022-07-17] MEDS: VITAMIN B COMPLEX 1 CAPSULE PO SCH (09:06)
[2022-07-17] MEDS: SEVELAMER HCL 800 MG TABLET PO SCH ×3 (09:06→16:23)
[2022-07-17] MEDS: PANTOPRAZOLE 40 MG TAB DR PO SCH (09:06)
[2022-07-17] MEDS: SODIUM BICARBONATE 650 MG TAB PO SCH ×2 (09:06→16:23)
[2022-07-17] MEDS: ASCORBIC ACID 500 MG TAB PO SCH (09:07)
[2022-07-17] MEDS: ENOXAPARIN SODIUM 40 MG/0.4 ML SYRINGE SQ SCH (09:07)
[2022-07-17] MEDS: FAMOTIDINE 20MG VIAL IV SCH ×2 (09:07→21:00)
[2022-07-17 11:44] VITALS: BP 124/93
[2022-07-17] MEDS: 0.9%NACL 1000ML 1,000 ML IV SCH (13:15)
[2022-07-17 15:48] VITALS: BP 121/85
[2022-07-17 19:56] VITALS: BP 123/84
[2022-07-17 23:32] VITALS: BP 117/83
[2022-07-18] MEDS: 0.9%NACL 1000ML 1,000 ML IV SCH ×3 (00:28→20:33)
[2022-07-18 03:38] VITALS: BP 98/62
[2022-07-18] MEDS: INSULIN HUMULIN R 100 UNIT/ML 3ML SQ SCH ×4 (06:39→20:35)
[2022-07-18] MEDS: INSULIN GLARGINE 100 UNITS/ML 10 ML VIAL SQ SCH ×2 (06:43→20:35)
[2022-07-18 08:00] VITALS: BP 138/90
[2022-07-18] MEDS: VITAMIN B COMPLEX 1 CAPSULE PO SCH (09:22)
[2022-07-18] MEDS: ENOXAPARIN SODIUM 40 MG/0.4 ML SYRINGE SQ SCH (09:22)
[2022-07-18] MEDS: PANTOPRAZOLE 40 MG TAB DR PO SCH (09:22)
[2022-07-18] MEDS: SODIUM BICARBONATE 650 MG TAB PO SCH ×2 (09:23→17:35)
[2022-07-18] MEDS: CALCITRIOL 0.25 MCG CAP PO SCH (09:23)
[2022-07-18] MEDS: SEVELAMER HCL 800 MG TABLET PO SCH ×3 (09:23→17:35)
[2022-07-18] MEDS: FAMOTIDINE 20MG VIAL IV SCH ×2 (09:23→20:33)
[2022-07-18] MEDS: ASCORBIC ACID 500 MG TAB PO SCH (09:30)
[2022-07-18 12:00] VITALS: BP 131/94
[2022-07-18 16:00] VITALS: BP 133/92
[2022-07-18 20:32] VITALS: BP 129/87
[2022-07-19] VITALS (28 sets, daily range): BP systolic 110–145; BP diastolic 68–97
[2022-07-19 05:01] LABS: BASOPHILS % (AUTO) 0.4 % (0.0-5.0); EOSINOPHILS % (AUTO) 0.4 % (0.0-8.0); HEMATOCRIT 26.2 % (42-54); LYMPHOCYTES % (AUTO) 21.4 % (21.0-51.0); MEAN CORPUSCULAR HEMOGLOBIN 26.8 pg (27.0-33.0); MEAN CORPUSCULAR HGB CONC 32.1 g/dL (32.0-36.0); MEAN CORPUSCULAR VOLUME 83.4 fL (79-99); MONOCYTES % (AUTO) 6.3 % (3.0-13.0); PLATELET COUNT (AUTO) 362 K/uL (130-400); RED BLOOD CELL COUNT(AUTO) 3.14 MIL/uL (4.50-6.20); RED CELL DISTRIBUTION WIDTH 15.4 % (11.0-15.5); WHITE BLOOD COUNT (AUTO) 9.7 K/uL (4.8-10.8)
[2022-07-19 05:15] LABS: ALBUMIN 1.6 g/dL (3.5-5.0); CREATININE 0.9 mg/dL (0.5-1.5); MAGNESIUM 1.4 mg/dL (1.80-2.40); TOTAL PROTEIN, SERUM 6.2 g/dL (6.0-8.3)
[2022-07-19] MEDS ORDERED: DEXTROSE 50%-WATER 50 ML DISP.SYRIN IV ONE ×2 (05:34→13:34)
[2022-07-19 06:04] LABS: POTASSIUM 2.5 mmol/L (3.5-5.1)
[2022-07-19] MEDS: INSULIN HUMULIN R 100 UNIT/ML 3ML SQ SCH ×4 (06:30→20:44)
[2022-07-19] MEDS: INSULIN GLARGINE 100 UNITS/ML 10 ML VIAL SQ SCH ×2 (06:31→20:43)
[2022-07-19] MEDS: SEVELAMER HCL 800 MG TABLET PO SCH ×3 (08:00→16:30)
[2022-07-19] MEDS: SODIUM BICARBONATE 650 MG TAB PO SCH ×2 (08:00→16:30)
[2022-07-19] MEDS: ENOXAPARIN SODIUM 40 MG/0.4 ML SYRINGE SQ SCH (08:42)
[2022-07-19] MEDS: CALCITRIOL 0.25 MCG CAP PO SCH (08:43)
[2022-07-19] MEDS: FAMOTIDINE 20MG VIAL IV SCH ×2 (08:43→20:42)
[2022-07-19] MEDS: ASCORBIC ACID 500 MG TAB PO SCH (08:43)
[2022-07-19] MEDS: VITAMIN B COMPLEX 1 CAPSULE PO SCH (08:43)
[2022-07-19] MEDS: PANTOPRAZOLE 40 MG TAB DR PO SCH (08:43)
[2022-07-19] MEDS ORDERED: MAGNESIUM SULFATE 1 GM/2 ML VIAL ONE (09:56)
[2022-07-19] MEDS ORDERED: LIDOCAINE HCL-MPF 1% 2ML VIAL ONE (10:49)
[2022-07-19] MEDS: POTASSIUM CHLORIDE 10MEQ/100ML 100 ML IV PRN ×2 (10:53→20:42)
[2022-07-19] MEDS ORDERED: POTASSIUM CHLORIDE 20MEQ/100ML 100 ML IV ONE ×2 (11:35→20:00)
[2022-07-19] MEDS ORDERED: FENTANYL CITRATE PF 50 MCG/1 ML 2ML VIAL ONE ×3 (11:46→13:20)
[2022-07-19] MEDS ORDERED: ROCURONIUM 10MG/1ML SYR 10 MG/ML ML ONE (11:46)
[2022-07-19] MEDS ORDERED: MIDAZOLAM HCL 1 MG/ML 2ML VIAL ONE (11:46)
[2022-07-19] MEDS ORDERED: PROPOFOL 10 MG/ML 20ML VIAL IV ONE (11:46)
[2022-07-19] MEDS ORDERED: CEFAZOLIN SODIUM 2 GM VIAL IVPB ONE (12:00)
[2022-07-19] MEDS ORDERED: PHENYLEPHRINE HCL 10 MG/ML 1ML VIAL IV ONE (12:24)
[2022-07-19] MEDS ORDERED: NEOSTIGMINE 5MG/5ML SYR IV ONE (13:17)
[2022-07-19] MEDS ORDERED: GLYCOPYRROLATE 1 MG/5 ML SYRINGE ONE (13:17)
[2022-07-19] MEDS: 0.9%NACL 10ML VIAL IV SCH ×2 (14:30→20:44)
[2022-07-19 14:57] LABS: CREATININE 0.8 mg/dL (0.5-1.5); MAGNESIUM 1.8 mg/dL (1.80-2.40)
[2022-07-19] MEDS: 0.9%NACL 1000ML 1,000 ML IV SCH (16:27)
[2022-07-19] MEDS: KCL 20 MEQ ERTAB PO PRN ×3 (16:31→20:42)
[2022-07-20] VITALS: BP 137/90
[2022-07-20 04:00] VITALS: BP 117/73
[2022-07-20 05:36] LABS: ALBUMIN 1.5 g/dL (3.5-5.0); CREATININE 0.8 mg/dL (0.5-1.5); MAGNESIUM 1.6 mg/dL (1.80-2.40); TOTAL PROTEIN, SERUM 5.9 g/dL (6.0-8.3)
[2022-07-20 05:41] LABS: POTASSIUM 2.9 mmol/L (3.5-5.1)
[2022-07-20] MEDS: KCL 20 MEQ ERTAB PO PRN ×4 (05:48→12:36)
[2022-07-20] MEDS: MAGNESIUM 2GM PREMIX 50ML 50 ML IV SCH (05:48)
[2022-07-20] MEDS: 0.9%NACL 1000ML 1,000 ML IV SCH ×3 (05:49→21:51)
[2022-07-20] MEDS: 0.9%NACL 10ML VIAL IV SCH ×3 (05:49→21:54)
[2022-07-20] MEDS: INSULIN HUMULIN R 100 UNIT/ML 3ML SQ SCH ×4 (06:04→20:51)
[2022-07-20] MEDS: INSULIN GLARGINE 100 UNITS/ML 10 ML VIAL SQ SCH ×2 (06:11→20:52)
[2022-07-20 08:00] VITALS: BP 154/94
[2022-07-20] MEDS: FAMOTIDINE 20MG VIAL IV SCH ×2 (09:59→21:51)
[2022-07-20] MEDS: ASCORBIC ACID 500 MG TAB PO SCH (09:59)
[2022-07-20] MEDS: SODIUM BICARBONATE 650 MG TAB PO SCH ×2 (09:59→17:09)
[2022-07-20] MEDS: PANTOPRAZOLE 40 MG TAB DR PO SCH (09:59)
[2022-07-20] MEDS: CALCITRIOL 0.25 MCG CAP PO SCH (09:59)
[2022-07-20] MEDS: VITAMIN B COMPLEX 1 CAPSULE PO SCH (09:59)
[2022-07-20] MEDS: SEVELAMER HCL 800 MG TABLET PO SCH ×3 (09:59→17:09)
[2022-07-20] MEDS: ENOXAPARIN SODIUM 40 MG/0.4 ML SYRINGE SQ SCH (10:01)
[2022-07-20] MEDS ORDERED: LIDOCAINE HCL-MPF 1% 2ML VIAL ONE (10:14)
[2022-07-20] MEDS: POTASSIUM CHLORIDE 10MEQ/100ML 100 ML IV PRN (10:37)
[2022-07-20 12:00] VITALS: BP 140/92
[2022-07-20 16:00] VITALS: BP 150/97
[2022-07-20 20:00] VITALS: BP 145/94
[2022-07-21] VITALS (7 sets, daily range): BP systolic 127–156; BP diastolic 76–98
[2022-07-21] MEDS ORDERED: MORPHINE 4 MG SYG IVP ONE (04:30)
[2022-07-21 05:29] LABS: HEMATOCRIT 24.5 % (42-54); MEAN CORPUSCULAR HEMOGLOBIN 27.1 pg (27.0-33.0); MEAN CORPUSCULAR HGB CONC 32.2 g/dL (32.0-36.0); MEAN CORPUSCULAR VOLUME 83.9 fL (79-99); RED BLOOD CELL COUNT(AUTO) 2.92 MIL/uL (4.50-6.20); RED CELL DISTRIBUTION WIDTH 16.4 % (11.0-15.5); WHITE BLOOD COUNT (AUTO) 8.6 K/uL (4.8-10.8)
[2022-07-21 05:42] LABS: CREATININE 0.9 mg/dL (0.5-1.5)
[2022-07-21] MEDS: 0.9%NACL 10ML VIAL IV SCH (05:59)
[2022-07-21] MEDS: INSULIN HUMULIN R 100 UNIT/ML 3ML SQ SCH ×4 (06:00→21:00)
[2022-07-21] MEDS: INSULIN GLARGINE 100 UNITS/ML 10 ML VIAL SQ SCH ×2 (06:00→20:39)
[2022-07-21] MEDS: 0.9%NACL 1000ML 1,000 ML IV SCH (06:02)
[2022-07-21] MEDS: POTASSIUM CHLORIDE 10MEQ/100ML 100 ML IV PRN ×3 (06:22→22:25)
[2022-07-21] MEDS: KCL 20 MEQ ERTAB PO PRN ×6 (06:23→22:25)
[2022-07-21] MEDS: SEVELAMER HCL 800 MG TABLET PO SCH ×3 (08:50→17:22)
[2022-07-21] MEDS: SODIUM BICARBONATE 650 MG TAB PO SCH ×2 (08:50→17:23)
[2022-07-21] MEDS: VITAMIN B COMPLEX 1 CAPSULE PO SCH (08:51)
[2022-07-21] MEDS: FAMOTIDINE 20MG VIAL IV SCH ×2 (08:51→20:38)
[2022-07-21] MEDS: CALCITRIOL 0.25 MCG CAP PO SCH (08:51)
[2022-07-21] MEDS: PANTOPRAZOLE 40 MG TAB DR PO SCH (08:51)
[2022-07-21] MEDS: ENOXAPARIN SODIUM 40 MG/0.4 ML SYRINGE SQ SCH (08:51)
[2022-07-21] MEDS: ASCORBIC ACID 500 MG TAB PO SCH (08:57)
[2022-07-21] MEDS ORDERED: ACETAMINOPHEN WITH CODEINE 1 TAB TAB PO PRN (10:30)
[2022-07-21] MEDS: MAGNESIUM 2GM PREMIX 50ML 50 ML IV SCH (15:25)
[2022-07-22] MEDS: KCL 20 MEQ ERTAB PO PRN ×5 (00:19→11:25)
[2022-07-22] MEDS: ACETAMINOPHEN WITH CODEINE 1 TAB TAB PO PRN ×2 (02:16→23:20)
[2022-07-22 03:13] VITALS: BP 148/88
[2022-07-22 05:54] LABS: HEMATOCRIT 22.5 % (42-54); MEAN CORPUSCULAR HGB CONC 32.9 g/dL (32.0-36.0); MEAN CORPUSCULAR VOLUME 82.1 fL (79-99); PLATELET COUNT (AUTO) 288 K/uL (130-400); RED BLOOD CELL COUNT(AUTO) 2.74 MIL/uL (4.50-6.20); WHITE BLOOD COUNT (AUTO) 7.4 K/uL (4.8-10.8)
[2022-07-22 06:03] LABS: CREATININE 0.8 mg/dL (0.5-1.5); MAGNESIUM 1.5 mg/dL (1.80-2.40); POTASSIUM 3.3 mmol/L (3.5-5.1)
[2022-07-22] MEDS: MAGNESIUM 2GM PREMIX 50ML 50 ML IV SCH (06:49)
[2022-07-22] MEDS: INSULIN GLARGINE 100 UNITS/ML 10 ML VIAL SQ SCH ×2 (06:56→21:12)
[2022-07-22] MEDS ORDERED: IRON SUCROSE COMPLEX 300 MG in 0.9% NACL 250ML 250 ML IV SCH (07:00)
[2022-07-22] MEDS: INSULIN HUMULIN R 100 UNIT/ML 3ML SQ SCH ×4 (07:30→21:00)
[2022-07-22 07:48] LABS: EOSINOPHILS % (MANUAL) 4 % (1-6); LYMPHOCYTES % (MANUAL) 20 % (22-44); MONOCYTES % (MANUAL) 3 % (2-9); SEGMENTED NEUTROPHILS % 73 % (40-70)
[2022-07-22 07:50] LABS: PLATELET MORPHOLOGY COMMENT ADEQUATE
[2022-07-22 07:51] LABS: MAN.DIFF COMMENT-IMPRESSION MANUAL DIFFERENTIAL
[2022-07-22 08:00] VITALS: BP 133/85
[2022-07-22] MEDS: SEVELAMER HCL 800 MG TABLET PO SCH ×3 (08:18→17:10)
[2022-07-22] MEDS: CALCITRIOL 0.25 MCG CAP PO SCH (08:18)
[2022-07-22] MEDS: SODIUM BICARBONATE 650 MG TAB PO SCH ×2 (08:18→17:10)
[2022-07-22] MEDS: VITAMIN B COMPLEX 1 CAPSULE PO SCH (08:19)
[2022-07-22] MEDS: FAMOTIDINE 20MG VIAL IV SCH ×2 (08:19→20:18)
[2022-07-22] MEDS: ENOXAPARIN SODIUM 40 MG/0.4 ML SYRINGE SQ SCH (08:20)
[2022-07-22] MEDS: PANTOPRAZOLE 40 MG TAB DR PO SCH (09:00)
[2022-07-22] MEDS: ASCORBIC ACID 500 MG TAB PO SCH (09:30)
[2022-07-22 12:00] VITALS: BP 143/95
[2022-07-22 16:00] VITALS: BP 170/109
[2022-07-22] MEDS ORDERED: LABETALOL 20MG SYG IV STA (17:25)
[2022-07-22 18:19] VITALS: BP 162/92
[2022-07-22] MEDS: GABAPENTIN 100 MG CAPSULE PO SCH (20:18)
[2022-07-22 20:45] VITALS: BP 173/103
[2022-07-22] MEDS: LABETALOL 20MG VIAL IV PRN (21:10)
[2022-07-23 00:33] VITALS: BP 153/90
[2022-07-23 04:27] VITALS: BP 155/93
[2022-07-23 05:21] LABS: HEMATOCRIT 24.4 % (42-54); MEAN CORPUSCULAR HEMOGLOBIN 26.9 pg (27.0-33.0); MEAN CORPUSCULAR HGB CONC 32.4 g/dL (32.0-36.0); PLATELET COUNT (AUTO) 288 K/uL (130-400); RED BLOOD CELL COUNT(AUTO) 2.94 MIL/uL (4.50-6.20); RED CELL DISTRIBUTION WIDTH 17.3 % (11.0-15.5); WHITE BLOOD COUNT (AUTO) 6.8 K/uL (4.8-10.8)
[2022-07-23 05:40] LABS: ALBUMIN 1.8 g/dL (3.5-5.0); CREATININE 0.8 mg/dL (0.5-1.5); MAGNESIUM 1.4 mg/dL (1.80-2.40); POTASSIUM 3.5 mmol/L (3.5-5.1)
[2022-07-23 05:43] LABS: BAND NEUTROPHILS % (MANUAL) 12 % (0-2); LYMPHOCYTES % (MANUAL) 18 % (22-44); MAN.DIFF COMMENT-IMPRESSION MANUAL DIFFERENTIAL; MONOCYTES % (MANUAL) 4 % (2-9); PLATELET MORPHOLOGY COMMENT ADEQUATE; SEGMENTED NEUTROPHILS % 66 % (40-70)
[2022-07-23] MEDS: KCL 20 MEQ ERTAB PO PRN ×2 (05:57→09:20)
[2022-07-23] MEDS: MAGNESIUM 2GM PREMIX 50ML 50 ML IV SCH (05:58)
[2022-07-23 07:30] VITALS: BP 155/76
[2022-07-23] MEDS: INSULIN HUMULIN R 100 UNIT/ML 3ML SQ SCH ×4 (07:30→21:00)
[2022-07-23] MEDS: INSULIN GLARGINE 100 UNITS/ML 10 ML VIAL SQ SCH ×2 (08:39→21:00)
[2022-07-23] MEDS: SODIUM BICARBONATE 650 MG TAB PO SCH ×2 (08:40→17:03)
[2022-07-23] MEDS: SEVELAMER HCL 800 MG TABLET PO SCH ×3 (08:40→17:03)
[2022-07-23] MEDS: FAMOTIDINE 20MG VIAL IV SCH ×2 (09:19→21:19)
[2022-07-23] MEDS: VITAMIN B COMPLEX 1 CAPSULE PO SCH (09:19)
[2022-07-23] MEDS: PANTOPRAZOLE 40 MG TAB DR PO SCH (09:19)
[2022-07-23] MEDS: CALCITRIOL 0.25 MCG CAP PO SCH (09:19)
[2022-07-23] MEDS: GABAPENTIN 100 MG CAPSULE PO SCH ×2 (09:19→21:19)
[2022-07-23] MEDS: ENOXAPARIN SODIUM 40 MG/0.4 ML SYRINGE SQ SCH (09:20)
[2022-07-23] MEDS: ASCORBIC ACID 500 MG TAB PO SCH (10:05)
[2022-07-23 11:30] VITALS: BP 149/93
[2022-07-23 15:30] VITALS: BP 170/97
[2022-07-23 20:00] VITALS: BP 164/101
[2022-07-23] MEDS: LABETALOL 20MG VIAL IV PRN (22:06)
[2022-07-24 00:02] VITALS: BP 165/94
[2022-07-24 04:38] VITALS: BP 152/92
[2022-07-24] MEDS: INSULIN GLARGINE 100 UNITS/ML 10 ML VIAL SQ SCH (06:22)
[2022-07-24] MEDS: INSULIN HUMULIN R 100 UNIT/ML 3ML SQ SCH ×2 (06:22→11:30)
[2022-07-24 07:30] VITALS: BP 159/99
[2022-07-24] MEDS: SODIUM BICARBONATE 650 MG TAB PO SCH (08:03)
[2022-07-24] MEDS: SEVELAMER HCL 800 MG TABLET PO SCH ×2 (08:03→12:23)
[2022-07-24] MEDS: ENOXAPARIN SODIUM 40 MG/0.4 ML SYRINGE SQ SCH (09:14)
[2022-07-24] MEDS: FAMOTIDINE 20MG VIAL IV SCH (09:14)
[2022-07-24] MEDS: CALCITRIOL 0.25 MCG CAP PO SCH (09:14)
[2022-07-24] MEDS: GABAPENTIN 100 MG CAPSULE PO SCH (09:14)
[2022-07-24] MEDS: PANTOPRAZOLE 40 MG TAB DR PO SCH (09:14)
[2022-07-24] MEDS: VITAMIN B COMPLEX 1 CAPSULE PO SCH (09:14)
[2022-07-24] MEDS: ASCORBIC ACID 500 MG TAB PO SCH (09:16)
[2022-07-24] MEDS: LABETALOL 20MG VIAL IV PRN (13:43)
[2022-07-24 14:43] VITALS: BP 151/95
== END 2022-07-24 15:50 | DRG 853 ==
LOC: 3AH 19:39 → 3BH 19:46 → 2BH 07-13 23:29 → 3CH 07-15 07:46
PROVIDERS: ADMIT Hospitalist; ATTEND Hospitalist
PROC: 0Y6H0Z1 Detachment at Right Lower Leg, High, Open Approach (ICD-10-PCS; principal; 2022-07-13 19:48)
PROC: 0JQQ0ZZ Repair Right Foot Subcutaneous Tissue and Fascia, Open Approach (ICD-10-PCS; 2022-07-19)
DX: A41.9 Sepsis, unspecified organism (principal); E43 Unspecified severe protein-calorie malnutrition; G93.41 Metabolic encephalopathy; J96.01 Acute respiratory failure with hypoxia; R65.21 Severe sepsis with septic shock; N17.9 Acute kidney failure, unspecified; E87.1 Hypo-osmolality and hyponatremia; D62 Acute posthemorrhagic anemia; L02.611 Cutaneous abscess of right foot; M86.8X7 Other osteomyelitis, ankle and foot; E11.52 Type 2 diabetes mellitus with diabetic peripheral angiopathy with gangrene; Z20.822 Contact with and (suspected) exposure to COVID-19; N18.9 Chronic kidney disease, unspecified; D75.839 Thrombocytosis, unspecified; E87.6 Hypokalemia; E83.42 Hypomagnesemia; E11.69 Type 2 diabetes mellitus with other specified complication; I12.9 Hypertensive chronic kidney disease with stage 1 through stage 4 chronic kidney disease, or unspecified chronic kidney disease; Z83.3 Family history of diabetes mellitus; Z79.4 Long term (current) use of insulin; Z79.82 Long term (current) use of aspirin; Z79.899 Other long term (current) drug therapy; Z89.611 Acquired absence of right leg above knee; Z89.512 Acquired absence of left leg below knee; Z68.32 Body mass index [BMI] 32.0-32.9, adult
CPT/HCPCS: 36415; 36600; 71045; 80048; 80053; 80202; 80305; 81001; 82140; 82435; 82570; 82803; 82947; 82948; 83036; 83540; 83550; 83605; 83735; 84100; 84132; 84156; 84295; 84443; 85014; 85018; 85025; 85027; 85610; 85730; 86850; 86900; 86901; 87040; 87070; 87076; 87077; 87088; 87186; 87426; 87635; 94002; 94003; 97039; G0378; J0330; J0692; J1650; J1756; J1815; J2020; J2250; J2270; J2370; J2405; J2704; J2710; J3010; J3370; J3475; J3480; J3490; J7030; J7042; J7050; J7060; J7070; J7120; L1830

== ENCOUNTER 2024-01-24 17:34 | Inpatient (IN) | payer OTHER ==
[~2024-01-24] VITALS: Ht 165.1 cm; Wt 94.3 kg
[~2024-01-24 17:34] MED LIST changes: -AMOX500T2 PO
[2024-01-24] MEDS ORDERED: IBUPROFEN 600 MG TABLET PO ONE (18:00)
[2024-01-24] MEDS: ACETAMINOPHEN 500 MG TABLET PO ONE (18:00)
[2024-01-24 21:49] LABS: BASOPHILS # (AUTO) 0.05 K/uL (0.00-0.20); BASOPHILS % (AUTO) 0.4 % (0.0-5.0); EOSINOPHILS # (AUTO) 0.06 K/uL (0.00-0.70); EOSINOPHILS % (AUTO) 0.5 % (0.0-8.0); HEMATOCRIT 30.2 % (42-54); IMMATURE GRANULOCYTE ABSOLUTE 0.06 K/uL (0-1); LYMPHOCYTES # (AUTO) 2.1 K/uL (1.0-4.8); LYMPHOCYTES % (AUTO) 16.7 % (21.0-51.0); MEAN CORPUSCULAR HEMOGLOBIN 26.7 pg (27.0-33.0); MEAN CORPUSCULAR HGB CONC 34.8 g/dL (32.0-36.0); MEAN CORPUSCULAR VOLUME 76.8 fL (79-99); MONOCYTES # (AUTO) 1.2 K/uL (0.1-1.0); MONOCYTES % (AUTO) 9.5 % (3.0-13.0); NEUTROPHILS # (AUTO) 9.3 K/uL (1.8-7.7); NEUTROPHILS % (AUTO) 72.4 % (40.0-77.0); PLATELET COUNT (AUTO) 199 K/uL (130-400); RED BLOOD CELL COUNT(AUTO) 3.93 MIL/uL (4.50-6.20); RED CELL DISTRIBUTION WIDTH 15.3 % (11.0-15.5); WHITE BLOOD COUNT (AUTO) 12.8 K/uL (4.8-10.8)
[2024-01-24 22:00] LABS: INR 1.01 (0.85-1.15); PROTHROMBIN TIME 10.9 SEC (9.6-11.6)
[2024-01-24 22:09] LABS: POTASSIUM 3.7 mmol/L (3.5-5.1)
[2024-01-24] MEDS: ONDANSETRON 4MG INJ IVP ONE (22:51)
[2024-01-24] MEDS: 0.9%NACL 1000ML 1,000 ML IV SCH ×2 (22:52→23:41)
[2024-01-24] MEDS: MORPHINE 4 MG SYG IVP ONE (22:52)
[2024-01-24] MEDS ORDERED: ONDANSETRON 4MG INJ IVP PRN (23:30)
[2024-01-25 04:00] VITALS: BP 106/60; PULSE 92; RESP 20
[2024-01-25] MEDS: HYDROMORPHONE 0.5 MG SYG (0.5MG/0.5ML) IVP PRN (04:20)
[2024-01-25] MEDS: INSULIN HUMULIN R 100 UNIT/ML 3ML SQ SCH (06:22)
[2024-01-25 06:23] LABS: BASOPHILS # (AUTO) 0.05 K/uL (0.00-0.20); BASOPHILS % (AUTO) 0.4 % (0.0-5.0); EOSINOPHILS # (AUTO) 0.08 K/uL (0.00-0.70); EOSINOPHILS % (AUTO) 0.7 % (0.0-8.0); HEMATOCRIT 25.3 % (42-54); IMMATURE GRANULOCYTE ABSOLUTE 0.04 K/uL (0-1); LYMPHOCYTES # (AUTO) 2.4 K/uL (1.0-4.8); LYMPHOCYTES % (AUTO) 20.6 % (21.0-51.0); MEAN CORPUSCULAR HEMOGLOBIN 26.9 pg (27.0-33.0); MEAN CORPUSCULAR HGB CONC 34.4 g/dL (32.0-36.0); MEAN CORPUSCULAR VOLUME 78.1 fL (79-99); MONOCYTES # (AUTO) 1.3 K/uL (0.1-1.0); MONOCYTES % (AUTO) 11.5 % (3.0-13.0); NEUTROPHILS # (AUTO) 7.7 K/uL (1.8-7.7); NEUTROPHILS % (AUTO) 66.5 % (40.0-77.0); PLATELET COUNT (AUTO) 157 K/uL (130-400); RED BLOOD CELL COUNT(AUTO) 3.24 MIL/uL (4.50-6.20); RED CELL DISTRIBUTION WIDTH 15.4 % (11.0-15.5); WHITE BLOOD COUNT (AUTO) 11.5 K/uL (4.8-10.8)
[2024-01-25 06:42] LABS: CREATININE 1.9 mg/dL (0.5-1.3); MAGNESIUM 1.7 mg/dL (1.80-2.40); POTASSIUM 3.7 mmol/L (3.5-5.1)
[2024-01-25 08:00] VITALS: BP 91/55; PULSE 88; RESP 18; O2SAT 98
[2024-01-25] MEDS: MAGNESIUM 2GM PREMIX 50ML 50 ML IV ONE (10:03)
[2024-01-25 12:00] VITALS: BP 97/60; PULSE 100; RESP 18
[2024-01-25 16:00] VITALS: BP 118/69; PULSE 99; RESP 18
[2024-01-25 20:00] VITALS: BP 117/71; PULSE 97; RESP 18; O2SAT 96
[2024-01-26] VITALS (23 sets, daily range): BP systolic 96–138; BP diastolic 52–78; PULSE 60–104; RESP 16–20; O2SAT 99
[2024-01-26] MEDS ORDERED: PANT40TA54 PO (00:31)
[2024-01-26] MEDS ORDERED: TAMS-1 PO (00:31)
[2024-01-26] MEDS ORDERED: ERGO500093 PO (00:31)
[2024-01-26] MEDS ORDERED: HYDR25TA67 PO (00:31)
[2024-01-26] MEDS ORDERED: AMLO2.5T4 PO (00:31)
[2024-01-26 05:34] LABS: BASOPHILS # (AUTO) 0.04 K/uL (0.00-0.20); BASOPHILS % (AUTO) 0.4 % (0.0-5.0); EOSINOPHILS # (AUTO) 0.09 K/uL (0.00-0.70); EOSINOPHILS % (AUTO) 0.8 % (0.0-8.0); HEMATOCRIT 23.7 % (42-54); IMMATURE GRANULOCYTE ABSOLUTE 0.04 K/uL (0-1); LYMPHOCYTES % (AUTO) 18.3 % (21.0-51.0); MEAN CORPUSCULAR HGB CONC 34.6 g/dL (32.0-36.0); MONOCYTES % (AUTO) 9.2 % (3.0-13.0); NEUTROPHILS # (AUTO) 7.9 K/uL (1.8-7.7); NEUTROPHILS % (AUTO) 70.9 % (40.0-77.0); PLATELET COUNT (AUTO) 179 K/uL (130-400); RED BLOOD CELL COUNT(AUTO) 3.04 MIL/uL (4.50-6.20); RED CELL DISTRIBUTION WIDTH 15.2 % (11.0-15.5); WHITE BLOOD COUNT (AUTO) 11.1 K/uL (4.8-10.8)
[2024-01-26 05:40] LABS: CREATININE 1.8 mg/dL (0.5-1.3); POTASSIUM 3.8 mmol/L (3.5-5.1)
[2024-01-26 05:42] LABS: INR 1.01 (0.85-1.15); PROTHROMBIN TIME 10.9 SEC (9.6-11.6)
[2024-01-26 05:44] LABS: PARTIAL THROMBOPLASTIN TIME 32.3 SEC (26.3-35.5)
[2024-01-26] MEDS ORDERED: LIDOCAINE PF 100MG/5ML (2%) SYRINGE 5ML ONE (07:19)
[2024-01-26] MEDS ORDERED: PROPOFOL 10 MG/ML 20ML VIAL IV ONE (07:19)
[2024-01-26] MEDS ORDERED: MIDAZOLAM HCL 1 MG/ML 2ML VIAL ONE (07:19)
[2024-01-26] MEDS ORDERED: ROCURONIUM BROMIDE 10MG/1ML 5ML VL ONE (07:19)
[2024-01-26] MEDS ORDERED: FENTANYL CITRATE PF 50 MCG/1 ML 2ML VIAL ONE (07:20)
[2024-01-26] MEDS ORDERED: ROPIVACAINE 0.5% 5MG/ML 30ML ONE ×2 (07:21→09:55)
[2024-01-26] MEDS ORDERED: PHENYLEPHRINE HCL 10 MG/ML 1ML VIAL IV ONE (07:34)
[2024-01-26] MEDS ORDERED: KETAMINE 50MG/ML SYRINGE 50 MG/ML DISP.SYRIN ONE (07:34)
[2024-01-26] MEDS: CEFAZOLIN SODIUM 2 GM VIAL ONE (07:52)
[2024-01-26] MEDS ORDERED: GLYCOPYRROLATE 0.2 MG/ML 5 ML VIAL ONE (09:24)
[2024-01-26] MEDS ORDERED: NEOSTIGMINE METHYLSULFATE 1MG/ML IV ONE (09:24)
[2024-01-26] MEDS ORDERED: ONDANSETRON 4MG INJ ONE (09:26)
[2024-01-26] MEDS: MEPERIDINE-PF 25 MG/ML SYG ONE ×2 (10:25→10:35)
[2024-01-26] MEDS: METOCLOPRAMIDE 10 MG/2 ML VIAL ONE (10:35)
[2024-01-26] MEDS: CEFAZOLIN SODIUM 1 GM VIAL IVPB SCH (17:06)
[2024-01-26] MEDS: ACETAMINOPHEN 325 MG TAB PO PRN (19:41)
[2024-01-27] VITALS (7 sets, daily range): BP systolic 109–127; BP diastolic 60–78; PULSE 87–104; RESP 14–20; O2SAT 99
[2024-01-27 04:11] LABS: WHITE BLOOD COUNT (AUTO) 13.1 K/uL (4.8-10.8)
[2024-01-27 04:12] LABS: HEMATOCRIT 23.2 % (42-54); MEAN CORPUSCULAR HEMOGLOBIN 27.1 pg (27.0-33.0); MEAN CORPUSCULAR HGB CONC 32.8 g/dL (32.0-36.0); MEAN CORPUSCULAR VOLUME 82.9 fL (79-99); RED BLOOD CELL COUNT(AUTO) 2.8 MIL/uL (4.50-6.20); RED CELL DISTRIBUTION WIDTH 15.4 % (11.0-15.5)
[2024-01-27] MEDS: HYDRALAZINE 25MG TABLET PO SCH (09:00)
[2024-01-27] MEDS: AMLODIPINE 2.5 MG TAB PO SCH (09:16)
[2024-01-27] MEDS: PANTOPRAZOLE 40 MG TAB DR PO SCH (09:16)
[2024-01-27] MEDS: ENOXAPARIN SODIUM 40 MG/0.4 ML SYRINGE SQ SCH (09:17)
[2024-01-27] MEDS: TAMSULOSIN HCL 0.4 MG CAP.ER.24H PO SCH (21:01)
[2024-01-28] VITALS (9 sets, daily range): BP systolic 104–133; BP diastolic 52–90; PULSE 85–105; RESP 15–20; TEMP 99.6; O2SAT 96
[2024-01-28 05:22] LABS: CREATININE 1.7 mg/dL (0.5-1.3); POTASSIUM 3.7 mmol/L (3.5-5.1); TOTAL PROTEIN, SERUM 5.9 g/dL (6.0-8.3)
[2024-01-28 05:22] LABS: BASOPHILS # (AUTO) 0.04 K/uL (0.00-0.20); BASOPHILS % (AUTO) 0.4 % (0.0-5.0); EOSINOPHILS # (AUTO) 0.09 K/uL (0.00-0.70); EOSINOPHILS % (AUTO) 0.9 % (0.0-8.0); IMMATURE GRANULOCYTE ABSOLUTE 0.04 K/uL (0-1); LYMPHOCYTES # (AUTO) 1.8 K/uL (1.0-4.8); MEAN CORPUSCULAR HEMOGLOBIN 27.4 pg (27.0-33.0); MEAN CORPUSCULAR VOLUME 78.3 fL (79-99); MONOCYTES % (AUTO) 9.8 % (3.0-13.0); NEUTROPHILS % (AUTO) 70.5 % (40.0-77.0); NUCLEATED RED BLOOD CELLS 0.2 % (0.0-0.19); PLATELET COUNT (AUTO) 216 K/uL (130-400); RED BLOOD CELL COUNT(AUTO) 2.63 MIL/uL (4.50-6.20); RED CELL DISTRIBUTION WIDTH 15.1 % (11.0-15.5)
[2024-01-28 05:23] LABS: HEMATOCRIT 20.6 % (42-54)
[2024-01-28] MEDS: IRON SUCROSE COMPLEX 100 MG/5 ML VIAL IV SCH (08:56)
[2024-01-29] VITALS (7 sets, daily range): BP systolic 100–137; BP diastolic 55–82; PULSE 73–90; RESP 18; O2SAT 98
[2024-01-29] MEDS ORDERED: POTASSIUM CHLORIDE 20MEQ/100ML 100 ML IV PRN (02:30)
[2024-01-29] MEDS ORDERED: MAGNESIUM 2GM PREMIX 50ML 50 ML IV PRN (02:30)
[2024-01-29] MEDS ORDERED: KCL 20 MEQ ERTAB PO PRN (02:30)
[2024-01-29] MEDS ORDERED: POTASSIUM CHLORIDE 10% ELIXIR 20 MEQ/15 ML UDCUP PO PRN (02:30)
[2024-01-29 05:26] LABS: ALBUMIN 2.1 g/dL (3.5-5.0); BILIRUBIN,TOTAL 1.3 mg/dL (0.2-1.0); CREATININE 1.5 mg/dL (0.5-1.3); POTASSIUM 3.5 mmol/L (3.5-5.1); TOTAL PROTEIN, SERUM 6.2 g/dL (6.0-8.3)
[2024-01-29 06:03] LABS: MEAN CORPUSCULAR HEMOGLOBIN 27.5 pg (27.0-33.0); MEAN CORPUSCULAR VOLUME 80.7 fL (79-99); NUCLEATED RED BLOOD CELLS 0.9 % (0.0-0.19); RED BLOOD CELL COUNT(AUTO) 2.44 MIL/uL (4.50-6.20); WHITE BLOOD COUNT (AUTO) 7.9 K/uL (4.8-10.8)
[2024-01-29 06:20] LABS: HEMATOCRIT 19.7 % (42-54)
[2024-01-29] MEDS: HYDROCODONE/ACETAMINOPHEN 5/325 MG TAB PO PRN (10:01)
[2024-01-29 16:35] LABS: % IRON SATURATION 86.9 % (30-44)
[2024-01-30] VITALS: BP 122/78; PULSE 77; RESP 20
[2024-01-30] MEDS: EPOETIN ALFA-EPBX (NON-ESRD) 10,000 UNIT/ML VIAL SQ ONE ×2 (00:06→19:34)
[2024-01-30 04:00] VITALS: BP 119/75; PULSE 79; RESP 18
[2024-01-30 07:58] VITALS: BP 112/69; PULSE 74; RESP 20
[2024-01-30 08:00] VITALS: O2SAT 100
[2024-01-30 08:11] LABS: HEMATOCRIT 25.4 % (42-54)
[2024-01-30] MEDS: IRON SUCROSE COMPLEX 100 MG/5 ML VIAL IV ONE (08:35)
[2024-01-30 12:00] VITALS: BP 123/72; PULSE 77; RESP 18
[2024-01-30 16:00] VITALS: BP 103/66; PULSE 76; RESP 18
[2024-01-31] MEDS ORDERED: FOLIC ACID 1 MG TABLET PO SCH (09:00)
[2024-01-31] MEDS ORDERED: CYANOCOBALAMIN (VITAMIN B-12) 1,000 MCG TABLET PO SCH (09:00)
== END 2024-01-30 20:30 | DRG 481 ==
LOC: EDH 17:34 → EDHIP 23:07 → 4BH 01-25 04:03
PROVIDERS: ADMIT Internal Medicine; ATTEND Internal Medicine
PROC: 0QP Lower Bones, Removal (ICD-10-PCS; 2024-01-26)
PROC: 0QSB04Z Reposition Right Lower Femur with Internal Fixation Device, Open Approach (ICD-10-PCS; principal; 2024-01-26 07:37)
PROC: 30233N1 Transfusion of Nonautologous Red Blood Cells into Peripheral Vein, Percutaneous Approach (ICD-10-PCS; 2024-01-29)
DX: S72.491A Other fracture of lower end of right femur, initial encounter for closed fracture (principal); N17.9 Acute kidney failure, unspecified; E11.65 Type 2 diabetes mellitus with hyperglycemia; D64.9 Anemia, unspecified; I12.9 Hypertensive chronic kidney disease with stage 1 through stage 4 chronic kidney disease, or unspecified chronic kidney disease; D72.829 Elevated white blood cell count, unspecified; N18.9 Chronic kidney disease, unspecified; S82.391A Other fracture of lower end of right tibia, initial encounter for closed fracture; E11.22 Type 2 diabetes mellitus with diabetic chronic kidney disease; W18.39XA Other fall on same level, initial encounter; Y93.89 Activity, other specified; Y99.8 Other external cause status; Y92.009 Unspecified place in unspecified non-institutional (private) residence as the place of occurrence of the external cause; Z89.511 Acquired absence of right leg below knee; Z79.899 Other long term (current) drug therapy
CPT/HCPCS: 36415; 36430; 73503; 73552; 73564; 73700; 80048; 80053; 82948; 83540; 83550; 83735; 85014; 85018; 85025; 85027; 85610; 85730; 86850; 86880; 86900; 86901; 86923; 93005; G0378; J0690; J1170; J1650; J1756; J1815; J2001; J2175; J2250; J2270; J2371; J2405; J2704; J2710; J2765; J2795; J3010; J3475; J3490; J7030; P9016; Q5106